=== PATIENT | female | born 1965 | race Caucasian/White ===

== ENCOUNTER 2018-01-03 06:25 | Day surgery (SDC) | payer OTHER ==
[2018-01-02 16:43] LABS: BASOPHILS % (AUTO) 0.6 % (0-1); EOSINOPHILS # (AUTO) 0.1 X10'3 (0-0.9); EOSINOPHILS % (AUTO) 1.8 % (0-6); LYMPHOCYTES # (AUTO) 2.9 X10'3 (1.1-4.8); LYMPHOCYTES % (AUTO) 40.1 % (21-51); MEAN CORPUSCULAR HEMOGLOBIN 31.9 PG (27.0-31.0); MEAN CORPUSCULAR HGB CONC 35.2 % (33.0-36.5); MEAN CORPUSCULAR VOLUME 90.7 FL (78-98); MEAN PLATELET VOLUME 8.4 FL (7.4-10.4); MONOCYTES # (AUTO) 0.5 X10'3 (0-0.9); MONOCYTES % (AUTO) 6.3 % (2-12); NEUTROPHILS # (AUTO) 3.8 X10'3 (1.8-7.7); NEUTROPHILS % (AUTO) 51.2 % (42-75); PRE OP HEMATOCRIT 35.3 % (35.0-45.0); PRE OP HEMOGLOBIN 12.4 g/dL (12.0-16.0); PRE OP PLATELET COUNT 274 X10'3 (140-440); RED BLOOD COUNT 3.89 X10'6 (4.20-5.60); RED CELL DISTRIBUTION WIDTH 13.1 % (11.5-14.5)
[2018-01-02 16:52] LABS: HEMOGLOBIN A1C 5.5 % (4.5-6.2)
[2018-01-02 16:58] LABS: ALBUMIN 3.7 G/DL (3.4-5.0); ALBUMIN/GLOBULIN RATIO 0.9 (1.1-1.5); ALKALINE PHOSPHATASE 73 IU/L (46-116); BLOOD UREA NITROGEN 14 MG/DL (7-18); BUN/CREATININE RATIO 15.6 (6.6-38.0); CALCIUM 8.8 MG/DL (8.5-10.1); CHLORIDE 108 MMOL/L (99-107); PRE OP ALT 49 U/L (30-65); PRE OP ANION GAP 10 (8-16); PRE OP AST 34 U/L (10-37); PRE OP BILIRUB, TOTAL 0.4 MG/DL (0.0-1.0); PRE OP GLUCOSE 101 MG/DL (70-104); PRE OP POTASSIUM 3.7 MMOL/L (3.4-5.1); PRE OP SODIUM 145 MMOL/L (135-145); TOTAL CARBON DIOXIDE 26.8 MMOL/L (24-32); TOTAL PROTEIN 7.6 G/DL (6.4-8.2); eGFR 65 ML/MIN
[~2018-01-03] VITALS: Ht 162.6 cm; Wt 88.2 kg
[2018-01-03] VITALS (7 sets, daily range): BP systolic 120–141; BP diastolic 57–74
[~2018-01-03 06:25] MED LIST: ACET-2144 PO; ASCO500C15 PO; CARV3.122 PO; CHOL10008 PO; DOCUMENT DATE & TIME OF BETA-BLOCKER PO ONE; GABA100C PO; GLIP5TAB13 PO; IBUP-24 PO; LACT1CAP65 PO; LEVO112T5 PO; LORA-512 PO; MULT-1085 PO; OMEG1CAP46 PO; OMEP20TA5 PO; ROSU20TA PO; VALERIAN ROOT PO; [UNRECOGNIZED DRUG - CODE] PO; cefazolin/dext.iso 2gm/50ml 50 ML IV ONE; famotidine 20mg tablet PO ONE; ringers solution, lacted 1,000 ML IV SCH
[2018-01-03] MEDS ORDERED: LIDOcaine 1% (10mg/ml) 2ml vial ONE (06:41)
[2018-01-03] MEDS ORDERED: BUPIVAcaine 0.5% inj/PF 30 ml vial ONE (07:23)
[2018-01-03] MEDS ORDERED: LIDOcaine 1% 30ml preserv. free vial ONE (08:50)
[2018-01-03] MEDS ORDERED: fentaNYL/PF 50MCG/1 ML 2ML syringe ONE (08:52)
[2018-01-03] MEDS ORDERED: MIDAZolam 5mg/5ml vial ONE (08:52)
[2018-01-03] MEDS ORDERED: ketorolac trometh. 30mg/ml inj. ONE (08:55)
[2018-01-03] MEDS ORDERED: ringers solution, lacted 1,000 ML IV SCH (09:21)
[2018-01-03] MEDS ORDERED: meperidine/PF 50mg/ml syringe IV PRN ×3 (09:25)
[2018-01-03] MEDS ORDERED: ondansetron/PF 4mg/2ml inj IV PRN (09:25)
[2018-01-03] MEDS ORDERED: proCHLORperazine 10 MG/2 ml inj IV PRN (09:25)
[2018-01-03] MEDS ORDERED: traMADol 50MG tablet PO ONE (10:30)
== END 2018-01-03 10:40 | disposition home or self-care (01) ==
LOC: PAS 06:25
PROVIDERS: ATTEND Orthopaedic Surgery
DX: G56.01 Carpal tunnel syndrome, right upper limb (principal); I10 Essential (primary) hypertension; J45.909 Unspecified asthma, uncomplicated; F17.210 Nicotine dependence, cigarettes, uncomplicated; M19.90 Unspecified osteoarthritis, unspecified site; E03.9 Hypothyroidism, unspecified; F31.9 Bipolar disorder, unspecified; E11.9 Type 2 diabetes mellitus without complications; E66.9 Obesity, unspecified; Z79.1 Long term (current) use of non-steroidal anti-inflammatories (NSAID); Z91.038 Other insect allergy status; Z90.89 Acquired absence of other organs; Z88.1 Allergy status to other antibiotic agents; Z90.710 Acquired absence of both cervix and uterus; Z88.6 Allergy status to analgesic agent; Z91.010 Allergy to peanuts; Z91.018 Allergy to other foods; Z98.890 Other specified postprocedural states; Z88.8 Allergy status to other drugs, medicaments and biological substances; Z68.33 Body mass index [BMI] 33.0-33.9, adult
CPT/HCPCS: 36415; 64721; 80053; 82948; 83036; 85025; 93005; A6449; J0690; J1885; J2250; J3010; J3490; J7120; A7000

== ENCOUNTER 2018-12-25 16:14 | Inpatient (IN) | payer OTHER ==
[~2018-12-25] VITALS: Ht 162.6 cm; Wt 79.2 kg
[~2018-12-25 16:14] MED LIST changes: -DOCUMENT DATE & TIME OF BETA-BLOCKER PO ONE; -ROSU20TA PO; +ROSU20TA2 PO; -cefazolin/dext.iso 2gm/50ml 50 ML IV ONE; -famotidine 20mg tablet PO ONE; -ringers solution, lacted 1,000 ML IV SCH
[2018-12-25] MEDS ORDERED: ondansetron/PF 4mg/2ml inj IV ONE (16:20)
[2018-12-25] MEDS ORDERED: normal saline 1000ML IV soln IVB ONE (16:20)
[2018-12-25] MEDS ORDERED: LORazepam 2 mg/ml vial IV ONE (16:20)
[2018-12-25] MEDS ORDERED: fentaNYL/PF 50MCG/1 ML 2ML syringe IV ONE (16:20)
[2018-12-25 16:57] LABS: PROTHROMBIN TIME 10.4 SECONDS (9.0-12.0)
[2018-12-25 17:00] LABS: ALANINE AMINOTRANSFERASE 27 U/L (12-78); ALBUMIN 3.8 G/DL (3.4-5.0); ALBUMIN/GLOBULIN RATIO 1.2 (1.1-1.5); ALKALINE PHOSPHATASE 57 IU/L (46-116); ANION GAP 9 (8-16); ASPARTATE AMINO TRANSFERASE 22 U/L (10-37); BILIRUBIN,TOTAL 0.3 MG/DL (0.1-1.0); BLOOD UREA NITROGEN 12 MG/DL (7-18); BUN/CREATININE RATIO 16.2 (6.6-38.0); CALCIUM 8.6 MG/DL (8.5-10.1); CHLORIDE 106 MMOL/L (99-107); CREATININE 0.74 MG/DL (0.40-0.90); GLUCOSE 100 MG/DL (70-104); POTASSIUM 3.3 MMOL/L (3.5-5.1); SODIUM 141 MMOL/L (135-145); TOTAL CARBON DIOXIDE 26.4 MMOL/L (24-32); eGFR 81 ML/MIN
[2018-12-25 17:10] LABS: BASOPHILS % (AUTO) 0.5 % (0-1); EOSINOPHILS % (AUTO) 0.7 % (0-6); HEMATOCRIT 35.3 % (35.0-45.0); HEMOGLOBIN 11.9 g/dl (12.0-16.0); LYMPHOCYTES # (AUTO) 1.8 X10'3 (1.1-4.8); LYMPHOCYTES % (AUTO) 29.2 % (21-51); MEAN CORPUSCULAR HEMOGLOBIN 31.3 PG (27.0-31.0); MEAN CORPUSCULAR HGB CONC 33.6 g/dL (33.0-36.5); MEAN CORPUSCULAR VOLUME 93.1 FL (78-98); MEAN PLATELET VOLUME 8.7 FL (7.4-10.4); MONOCYTES # (AUTO) 0.4 X10'3 (0-0.9); MONOCYTES % (AUTO) 6.4 % (2-12); NEUTROPHILS # (AUTO) 3.8 X10'3 (1.8-7.7); NEUTROPHILS % (AUTO) 63.2 % (42-75); PLATELET COUNT 236 X10'3 (140-440); RED CELL DISTRIBUTION WIDTH 13.1 % (11.5-14.5)
[2018-12-25] MEDS ORDERED: HYDROmorphone 1 mg/ml syringe IV ONE (17:15)
[2018-12-25] MEDS: normal saline 1000ml 1,000 ML IV SCH (17:52)
[2018-12-25] MEDS ORDERED: CADD PCA waste documentation MC PRN (17:55)
[2018-12-25] MEDS ORDERED: magnesium 4gm in 100ml NS 100 ML IV PRN (17:55)
[2018-12-25] MEDS ORDERED: HYDROcodone/acetaminophen 5mg/325mg tablet PO PRN (17:55)
[2018-12-25] MEDS ORDERED: HYDROmorphone/NS 1 mg/ml CADD 50 ML IV SCH (17:55)
[2018-12-25] MEDS: K and/or MAG REPLACEMENT MC SCH (17:55)
[2018-12-25] MEDS ORDERED: magnesium hydroxide 30ml (MOM) UD suspension PO PRN (17:55)
[2018-12-25] MEDS ORDERED: mag hydrox/Alum hydrox/simeth 30ml oral suspension PO PRN (17:55)
[2018-12-25] MEDS ORDERED: HYDROcodone/acetaminophen 10/325mg tab PO PRN (17:55)
[2018-12-25] MEDS ORDERED: naloxone 0.4 mg/ml inj IV PRN (17:55)
[2018-12-25] MEDS ORDERED: potassium Cl 20 mEq SR tablet PO PRN ×2 (17:55)
[2018-12-25] MEDS ORDERED: magnesium Cl slow-release 64mg tablet PO PRN (17:55)
[2018-12-25] MEDS ORDERED: ondansetron/PF 4mg/2ml inj IV PRN (17:55)
[2018-12-25] MEDS ORDERED: magnesium 2GM in 50ml NS 50 ML IV PRN (17:55)
[2018-12-25] MEDS ORDERED: potassium Cl 40MEQ/NS 500ml 500 ML IV PRN ×2 (17:55)
[2018-12-25] MEDS ORDERED: acetaminophen 325mg tablet PO PRN ×2 (17:55)
[2018-12-25] MEDS: HYDROmorphone/NS 1 mg/ml CADD 50 ML IV SCH ×5 (18:16→23:00)
[2018-12-25] MEDS ORDERED: LEVO100T PO (18:49)
[2018-12-25] MEDS ORDERED: LORA10TA7 PO (18:51)
[2018-12-25] MEDS ORDERED: ALBU8.5H8 IH (18:58)
[2018-12-25] MEDS ORDERED: DULO60CA64 PO (18:59)
--- NOTE | 2018-12-25 19:05 | NUR ---
Received report from Lizabeth BOWIE. Will assume patient care.
[2018-12-25] MEDS ORDERED: albuterol 2.5 MG/3 ML nebule NEB PRN (19:10)
[2018-12-25] MEDS ORDERED: potassium Cl oral solution 20 MEQ/15 ML PO PRN (19:49)
--- NOTE | 2018-12-25 20:00 | NUR ---
Patient arrived via gurney with family present. Patient extremely painful. Rating pain 10/10 to left leg where her fracture tibula/fibula is. Patient arrived to floor with no splint in place. Patient required 5 nursing staff to transfer her over to hospital bed which took approximately 30 mins r/t pain and position of her left leg. Patient does have a dilaudid cadd in place and using it. Vitals signs stable. Will continue with care.
--- NOTE | 2018-12-25 20:30 | NUR ---
Dr. Reese called 1mg bolus dilaudid given prior to spint being applied tonight. Charge nurse Valeria BOWIE co-witness and signed.
[2018-12-25] MEDS: acetaminophen 325mg tablet PO SCH (20:42)
[2018-12-25] MEDS: potassium Cl oral solution 20 MEQ/15 ML PO PRN (20:43)
[2018-12-25] MEDS ORDERED: temazepam 15mg capsule PO PRN (21:00)
--- NOTE | 2018-12-25 21:10 | NUR ---
Dr. Kaiser called and received orders to applied a long leg spint to left leg. Orth tech called and arrived to applied. Nurse and nursing assistance help architecture technician applied spint. Patient rating her pain level 4/10 currently. Will continue with care.
[2018-12-25 21:20] LABS: HEMOGLOBIN A1C 6.1 % (4.5-6.2)
[2018-12-25] MEDS: diphenhydrAMINE 50 mg/ml inj IV PRN (21:36)
[2018-12-25 22:00] VITALS: BP 104/66
--- NOTE | 2018-12-25 22:00 | NUR ---
Patient itching r/t dilaudid cadd. Dr. Reese called and akbar ordered and given.
--- NOTE | 2018-12-25 22:30 | NUR ---
Patient desated down to high 60's-70's. Non rebreather applied for 3-5 mins sats when up to high 90's and N/c applied at 4L. Patient Respiration rate 13. Patient current sats 96% 4L N/C. Patient pretty drowsy. CADD pump removed from patient until patient is more arousable and RR is improved. A continuous pulse ox applied at bedside. Will continue to monitor.
[2018-12-26] VITALS (16 sets, daily range): BP systolic 92–121; BP diastolic 40–67
--- NOTE | 2018-12-26 00:30 | NUR ---
Patient woke up in pain 04/01 and moaning. RR 14-16. CADD pump given back to patient. Pulse palpable to left foot. Left foot remains cold and splint in place with leg elevated.
[2018-12-26] MEDS: HYDROmorphone/NS 1 mg/ml CADD 50 ML IV SCH ×11 (01:00→23:00)
[2018-12-26] MEDS: potassium Cl oral solution 20 MEQ/15 ML PO PRN (01:39)
--- NOTE | 2018-12-26 02:00 | NUR ---
Patient reposition for comfort. Patient requesting for a Trapeze bar. Trapeze bar applied to bed. Patient was able to help with repositioning. Will continue with care.
[2018-12-26] MEDS: normal saline 1000ml 1,000 ML IV SCH ×3 (04:33→21:13)
[2018-12-26] MEDS: diphenhydrAMINE 50 mg/ml inj IV PRN ×2 (04:43→21:18)
--- NOTE | 2018-12-26 06:10 | NUR ---
Patient in room ORTHO 4014. I have received report from Lauren Lopez RN and had the opportunity to ask questions and assume patient care.
[2018-12-26 07:10] LABS: BASOPHILS % (AUTO) 0.5 % (0-1); EOSINOPHILS % (AUTO) 0.5 % (0-6); HEMOGLOBIN 9.9 g/dl (12.0-16.0); LYMPHOCYTES # (AUTO) 1.6 X10'3 (1.1-4.8); LYMPHOCYTES % (AUTO) 27.1 % (21-51); MEAN CORPUSCULAR HGB CONC 34.2 g/dL (33.0-36.5); MEAN CORPUSCULAR VOLUME 93.7 FL (78-98); MEAN PLATELET VOLUME 8.4 FL (7.4-10.4); MONOCYTES # (AUTO) 0.6 X10'3 (0-0.9); MONOCYTES % (AUTO) 9.3 % (2-12); NEUTROPHILS # (AUTO) 3.7 X10'3 (1.8-7.7); NEUTROPHILS % (AUTO) 62.6 % (42-75); PLATELET COUNT 193 X10'3 (140-440); RED BLOOD COUNT 3.09 X10'6 (4.20-5.60); RED CELL DISTRIBUTION WIDTH 13.3 % (11.5-14.5)
[2018-12-26 07:23] LABS: ALBUMIN 3.1 G/DL (3.4-5.0); ANION GAP 7 (8-16); BLOOD UREA NITROGEN 13 MG/DL (7-18); BUN/CREATININE RATIO 17.3 (6.6-38.0); CALCIUM 7.6 MG/DL (8.5-10.1); CHLORIDE 109 MMOL/L (99-107); CREATININE 0.75 MG/DL (0.40-0.90); GLUCOSE 107 MG/DL (70-104); MAGNESIUM 1.6 MG/DL (1.5-2.4); SODIUM 142 MMOL/L (135-145); TOTAL CARBON DIOXIDE 25.8 MMOL/L (24-32); eGFR 80 ML/MIN
[2018-12-26] MEDS: pantoprazole 40mg Tablet.DR PO SCH (07:30)
[2018-12-26] MEDS: lactobacillus rhamnosus 10,000 MMU CELLS/CAPSULE PO SCH (08:00)
[2018-12-26] MEDS: levoTHYROXINE 100mcg tablet PO SCH (08:00)
[2018-12-26] MEDS: loratadine 10mg tablet PO SCH (08:00)
[2018-12-26] MEDS: acetaminophen 325mg tablet PO SCH ×2 (08:00→21:12)
[2018-12-26] MEDS: K and/or MAG REPLACEMENT MC SCH (08:00)
[2018-12-26] MEDS: duloxetine 30mg CAPSULE.DR PO SCH (08:00)
[2018-12-26] MEDS ORDERED: ringers solution, lacted 1,000 ML IV SCH (09:41)
[2018-12-26] MEDS ORDERED: labetalol 20mg/4ml (5mg/ml) syringe IV PRN (09:45)
[2018-12-26] MEDS ORDERED: ondansetron/PF 4mg/2ml inj IV PRN (09:45)
[2018-12-26] MEDS ORDERED: hydrALAZINE 20mg/ml inj. IV PRN (09:45)
[2018-12-26] MEDS ORDERED: fentaNYL/PF 50MCG/1 ML 2ML syringe IV PRN ×2 (09:45)
--- NOTE | 2018-12-26 09:45 | NUR ---
Problems reprioritized. Patient report given, questions answered & plan of care reviewed with AZEB Brody in recovery.
[2018-12-26] MEDS ORDERED: midazolam 2 mg/2 ml injection ONE (09:56)
[2018-12-26] MEDS ORDERED: fentaNYL/PF 50MCG/1 ML 2ML syringe ONE (09:56)
[2018-12-26] MEDS ORDERED: sevoflurane 250ml liquid IH ONE (09:57)
[2018-12-26] MEDS ORDERED: ROPIVAcaine 0.5% (5mg/ml) 30ml vial ONE (10:03)
[2018-12-26] MEDS ORDERED: propofol inj 20 ML IV ONE (10:04)
[2018-12-26] MEDS ORDERED: ondansetron/PF 4mg/2ml inj ONE (10:04)
[2018-12-26] MEDS ORDERED: LIDOcaine 2% (20mg/ml) 5ml vial ONE (10:05)
--- NOTE | 2018-12-26 10:28 | NUR ---
Received from OR via , accompanied by Anesthesiologist DR. TREVIZO and report given by Anesthesiolgist. PATIENT RESTING WITH EYES CLOSED, RR 14, 02 100% 10L MASK, LUNG SOUNDS CLEAR, 20 GAUGE IV NOTED TO RIGHT WRIST, SCD'S IN PLACE, F/C NOTED WITH YELLOW DRAINAGE, CAST TO LEFT LEG CAP REFIL WNL. WILL CONTINUE TO MONITOR.
--- NOTE | 2018-12-26 10:30 | NUR ---
Received report from Sadaf in recovery. Vitals stable, pt very sleepy
--- NOTE | 2018-12-26 11:03 | NUR ---
PATIENT TRANSFER CRITERIA MET, TRANSFERRED BACK TO ORTHO FLOOR. REPORT CALLED TO SINA BOWIE ON ORTHO, [place] VIA ORTHO BED. VSS CHARTED, CAST TO LEFT LEG CDI, LEFT TOES WARM TO TOUCH, CAP RE-DEWEY WNL.
--- NOTE | 2018-12-26 11:35 | NUR ---
Student documentation: I have reviewed all interventions, assessments performed and documented by Kayce Dye. Student Medication Administration: For this medication-pass time frame, all medication were reviewed, dispensed, administered and documented per hospital policy by Kayce Dye.
--- NOTE | 2018-12-26 13:00 | NUR ---
The Cadd assessment settings did not change as pt had just returned from the OR and has not resumed using her Cadd pump.
--- NOTE | 2018-12-26 18:25 | NUR ---
Problems reprioritized. Patient report given, questions answered & plan of care reviewed with Nenita Deleon RN.
--- NOTE | 2018-12-26 18:30 | NUR ---
PATIENT REPORT RECEIVED FROM SINA BOWIE.
--- NOTE | 2018-12-26 22:47 | NUR ---
PATIENT REFUSED TO HAVE NEW IV PUT IN. FIELD START STILL IN PLACE.
[2018-12-27] VITALS (21 sets, daily range): BP systolic 99–159; BP diastolic 30–77
[2018-12-27] MEDS: HYDROmorphone/NS 1 mg/ml CADD 50 ML IV SCH ×12 (01:00→23:00)
[2018-12-27 05:59] LABS: BASOPHILS % (AUTO) 0.4 % (0-1); EOSINOPHILS # (AUTO) 0.1 X10'3 (0-0.9); EOSINOPHILS % (AUTO) 1.1 % (0-6); HEMATOCRIT 25.2 % (35.0-45.0); HEMOGLOBIN 8.5 g/dl (12.0-16.0); LYMPHOCYTES # (AUTO) 1.3 X10'3 (1.1-4.8); LYMPHOCYTES % (AUTO) 20.6 % (21-51); MEAN CORPUSCULAR HEMOGLOBIN 31.7 PG (27.0-31.0); MEAN CORPUSCULAR HGB CONC 33.7 g/dL (33.0-36.5); MEAN CORPUSCULAR VOLUME 94.1 FL (78-98); MEAN PLATELET VOLUME 8.5 FL (7.4-10.4); MONOCYTES # (AUTO) 0.6 X10'3 (0-0.9); MONOCYTES % (AUTO) 9.5 % (2-12); NEUTROPHILS # (AUTO) 4.4 X10'3 (1.8-7.7); NEUTROPHILS % (AUTO) 68.4 % (42-75); PLATELET COUNT 162 X10'3 (140-440); RED BLOOD COUNT 2.68 X10'6 (4.20-5.60); WHITE BLOOD COUNT 6.5 X10'3 (4.5-11.0)
[2018-12-27 06:03] LABS: ALBUMIN 2.6 G/DL (3.4-5.0); ANION GAP 6 (8-16); BLOOD UREA NITROGEN 8 MG/DL (7-18); BUN/CREATININE RATIO 13.3 (6.6-38.0); CALCIUM 7.5 MG/DL (8.5-10.1); CHLORIDE 105 MMOL/L (99-107); GLUCOSE 105 MG/DL (70-104); MAGNESIUM 1.5 MG/DL (1.5-2.4); POTASSIUM 3.6 MMOL/L (3.5-5.1); SODIUM 139 MMOL/L (135-145); eGFR > 90 ML/MIN
--- NOTE | 2018-12-27 06:21 | NUR ---
PATIENT REPORT GIVEN TO BRENTON BOWIE.
--- NOTE | 2018-12-27 06:58 | NUR ---
Patient in room ORTHO 4014. I have received report from Nenita Solorzano RN and had the opportunity to ask questions and assume patient care.
[2018-12-27] MEDS: K and/or MAG REPLACEMENT MC SCH (07:06)
[2018-12-27] MEDS: normal saline 1000ml 1,000 ML IV SCH ×2 (07:41→19:53)
[2018-12-27] MEDS: pantoprazole 40mg Tablet.DR PO SCH (08:15)
[2018-12-27] MEDS: lactobacillus rhamnosus 10,000 MMU CELLS/CAPSULE PO SCH (08:15)
[2018-12-27] MEDS: levoTHYROXINE 100mcg tablet PO SCH (08:16)
[2018-12-27] MEDS: duloxetine 30mg CAPSULE.DR PO SCH (08:16)
[2018-12-27] MEDS: loratadine 10mg tablet PO SCH (08:16)
[2018-12-27] MEDS: acetaminophen 325mg tablet PO SCH ×2 (08:17→19:48)
[2018-12-27] MEDS: diphenhydrAMINE 50 mg/ml inj IV PRN (08:18)
--- NOTE | 2018-12-27 08:41 | NUR ---
Paged picc nurse to see if a midline be placed in [id number], Picc nurse will be up to place one
--- NOTE | 2018-12-27 10:36 | NUR ---
Extended PIV inserted to the left upper arm cephalic vein x 2 attempts using ultrasound. Alicia well Addendum: 12/27/18 at 1037 by Mackenzie Johnston RN Amended: Links added.
--- NOTE | 2018-12-27 15:15 | NUR ---
Report called to Joe in Recovery
[2018-12-27] MEDS ORDERED: sevoflurane 250ml liquid IH ONE (15:32)
[2018-12-27] MEDS ORDERED: fentaNYL /PF 50mcg/ml 5ml ampule ONE (15:37)
[2018-12-27] MEDS ORDERED: midazolam 2 mg/2 ml injection ONE (15:37)
[2018-12-27] MEDS ORDERED: propofol inj 20 ML IV ONE (15:37)
[2018-12-27] MEDS ORDERED: ceFAZolin 1000mg inj ONE ×2 (15:48)
[2018-12-27] MEDS ORDERED: BUPIVAcaine/PF 2.5mg/ml (0.25%) 10ml vial ONE (16:26)
--- NOTE | 2018-12-27 16:50 | NUR ---
Received from OR via BED , accompanied by Anesthesiologist DR WALLS and report given by Anesthesiolgist. PATIENT WAKING UP, DENIES PAIN, V/S WNL, NEUROVASCULAR CHECKS INTACT, EXTENTION IV LUE , DRESSING TO LEFT LEG WITH EXTERNAL FIXATOR CDI, SCD ON. F/C DRAINING CLEAR YELLOW URINE.
--- NOTE | 2018-12-27 17:15 | NUR ---
Received report from Joe in recovery
--- NOTE | 2018-12-27 18:08 | NUR ---
Problems reprioritized. Patient report given, questions answered & plan of care reviewed with Nenita Solorzano RN.
--- NOTE | 2018-12-27 18:08 | NUR ---
PATIENT REPORT RECEIVED FROM BRENTON BOWIE.
--- NOTE | 2018-12-27 18:30 | NUR ---
PATIENT SLEEPY BUT ORIENTED X4, DENIES PAIN, V/S WNL, NEUROVASCULAR CHECKS INTACT, EXTENTION IV LUE , DRESSING TO LEFT KNEE WITH EXTERNAL FIXATOR CDI W/ SCD ON RLE. F/C DRAINING CLEAR YELLOW URINE. PATIENT TAKEN TO 4014B WITH ALL BELONGINGS AND HOOKED UP TO MONITORS IN ROOM AND REPORT GIVEN TO COAL INSPECTOR WHO HAS TAKEN OVER PATIENT CARE.
[2018-12-28] MEDS: HYDROmorphone/NS 1 mg/ml CADD 50 ML IV SCH ×12 (01:00→22:58)
[2018-12-28 02:00] VITALS: BP 104/38
[2018-12-28] MEDS: normal saline 1000ml 1,000 ML IV SCH ×2 (05:18→15:07)
[2018-12-28 06:00] VITALS: BP 104/42
--- NOTE | 2018-12-28 06:15 | NUR ---
Patient in room ORTHO 4014. I have received report from Nenita Deleon RN and had the opportunity to ask questions and assume patient care.
--- NOTE | 2018-12-28 06:32 | NUR ---
PATIENT REPORT GIVEN TO SINA BOWIE.
[2018-12-28 06:36] LABS: BASOPHILS % (AUTO) 0.4 % (0-1); EOSINOPHILS # (AUTO) 0.1 X10'3 (0-0.9); EOSINOPHILS % (AUTO) 1.3 % (0-6); HEMATOCRIT 22.2 % (35.0-45.0); HEMOGLOBIN 7.7 g/dl (12.0-16.0); LYMPHOCYTES # (AUTO) 1.5 X10'3 (1.1-4.8); LYMPHOCYTES % (AUTO) 27.5 % (21-51); MEAN CORPUSCULAR HEMOGLOBIN 32.3 PG (27.0-31.0); MEAN CORPUSCULAR HGB CONC 34.9 g/dL (33.0-36.5); MEAN CORPUSCULAR VOLUME 92.6 FL (78-98); MEAN PLATELET VOLUME 8.4 FL (7.4-10.4); MONOCYTES # (AUTO) 0.5 X10'3 (0-0.9); MONOCYTES % (AUTO) 8.7 % (2-12); NEUTROPHILS # (AUTO) 3.4 X10'3 (1.8-7.7); NEUTROPHILS % (AUTO) 62.1 % (42-75); PLATELET COUNT 151 X10'3 (140-440); RED BLOOD COUNT 2.39 X10'6 (4.20-5.60); RED CELL DISTRIBUTION WIDTH 12.9 % (11.5-14.5); WHITE BLOOD COUNT 5.5 X10'3 (4.5-11.0)
[2018-12-28 06:53] LABS: ALBUMIN 2.3 G/DL (3.4-5.0); ANION GAP 5 (8-16); BLOOD UREA NITROGEN 6 MG/DL (7-18); BUN/CREATININE RATIO 10.3 (6.6-38.0); CALCIUM 7.7 MG/DL (8.5-10.1); CHLORIDE 105 MMOL/L (99-107); CREATININE 0.58 MG/DL (0.40-0.90); GLUCOSE 119 MG/DL (70-104); MAGNESIUM 1.6 MG/DL (1.5-2.4); POTASSIUM 3.2 MMOL/L (3.5-5.1); SODIUM 140 MMOL/L (135-145); TOTAL CARBON DIOXIDE 30.2 MMOL/L (24-32); eGFR > 90 ML/MIN
[2018-12-28] MEDS: pantoprazole 40mg Tablet.DR PO SCH (07:36)
[2018-12-28] MEDS: loratadine 10mg tablet PO SCH (07:36)
[2018-12-28] MEDS: lactobacillus rhamnosus 10,000 MMU CELLS/CAPSULE PO SCH (07:36)
[2018-12-28] MEDS: levoTHYROXINE 100mcg tablet PO SCH (07:37)
[2018-12-28] MEDS: duloxetine 30mg CAPSULE.DR PO SCH (07:37)
[2018-12-28] MEDS: acetaminophen 325mg tablet PO SCH ×2 (07:37→19:12)
[2018-12-28] MEDS: potassium Cl oral solution 20 MEQ/15 ML PO PRN ×3 (07:38→23:17)
[2018-12-28] MEDS: K and/or MAG REPLACEMENT MC SCH (08:00)
[2018-12-28 10:00] VITALS: BP 95/46
[2018-12-28] MEDS: diphenhydrAMINE 50 mg/ml inj IV PRN ×2 (11:50→19:19)
[2018-12-28 14:00] VITALS: BP 98/57
[2018-12-28 15:15] LABS: BASOPHILS % (AUTO) 0.5 % (0-1); EOSINOPHILS # (AUTO) 0.1 X10'3 (0-0.9); EOSINOPHILS % (AUTO) 1.5 % (0-6); HEMATOCRIT 22.5 % (35.0-45.0); HEMOGLOBIN 7.9 g/dl (12.0-16.0); LYMPHOCYTES # (AUTO) 1.1 X10'3 (1.1-4.8); LYMPHOCYTES % (AUTO) 21.7 % (21-51); MEAN CORPUSCULAR HEMOGLOBIN 32.6 PG (27.0-31.0); MEAN CORPUSCULAR VOLUME 93.2 FL (78-98); MEAN PLATELET VOLUME 7.8 FL (7.4-10.4); MONOCYTES # (AUTO) 0.5 X10'3 (0-0.9); MONOCYTES % (AUTO) 8.9 % (2-12); NEUTROPHILS # (AUTO) 3.5 X10'3 (1.8-7.7); NEUTROPHILS % (AUTO) 67.4 % (42-75); PLATELET COUNT 150 X10'3 (140-440); RED BLOOD COUNT 2.42 X10'6 (4.20-5.60); RED CELL DISTRIBUTION WIDTH 13.2 % (11.5-14.5); WHITE BLOOD COUNT 5.1 X10'3 (4.5-11.0)
[2018-12-28 18:00] VITALS: BP 104/41
--- NOTE | 2018-12-28 18:27 | NUR ---
Problems reprioritized. Patient report given, questions answered & plan of care reviewed with Nenita Garcia RN.
--- NOTE | 2018-12-28 18:30 | NUR ---
Patient in room ORTHO 4014B. I have received report from AZEB Burgos and had the opportunity to ask questions and assume patient care.
[2018-12-28] MEDS: heparin, porcine 5000 units/ml vial SQ SCH (19:11)
[2018-12-28 22:00] VITALS: BP 99/44
[2018-12-29] MEDS: HYDROmorphone/NS 1 mg/ml CADD 50 ML IV SCH ×7 (01:00→13:00)
[2018-12-29] MEDS: normal saline 1000ml 1,000 ML IV SCH ×2 (02:40→12:00)
[2018-12-29 05:27] LABS: BASOPHILS % (AUTO) 0.5 % (0-1); EOSINOPHILS # (AUTO) 0.1 X10'3 (0-0.9); EOSINOPHILS % (AUTO) 2.2 % (0-6); HEMATOCRIT 22.1 % (35.0-45.0); HEMOGLOBIN 7.8 g/dl (12.0-16.0); LYMPHOCYTES # (AUTO) 1.2 X10'3 (1.1-4.8); LYMPHOCYTES % (AUTO) 29.8 % (21-51); MEAN CORPUSCULAR HEMOGLOBIN 32.8 PG (27.0-31.0); MEAN CORPUSCULAR HGB CONC 35.3 g/dL (33.0-36.5); MEAN CORPUSCULAR VOLUME 92.9 FL (78-98); MEAN PLATELET VOLUME 7.9 FL (7.4-10.4); MONOCYTES # (AUTO) 0.4 X10'3 (0-0.9); MONOCYTES % (AUTO) 10.2 % (2-12); NEUTROPHILS # (AUTO) 2.3 X10'3 (1.8-7.7); NEUTROPHILS % (AUTO) 57.3 % (42-75); PLATELET COUNT 156 X10'3 (140-440); RED BLOOD COUNT 2.38 X10'6 (4.20-5.60); RED CELL DISTRIBUTION WIDTH 13.2 % (11.5-14.5)
[2018-12-29 05:46] LABS: ALBUMIN 2.2 G/DL (3.4-5.0); ANION GAP 6 (8-16); BLOOD UREA NITROGEN 5 MG/DL (7-18); BUN/CREATININE RATIO 10.4 (6.6-38.0); CALCIUM 7.5 MG/DL (8.5-10.1); CHLORIDE 105 MMOL/L (99-107); CREATININE 0.48 MG/DL (0.40-0.90); GLUCOSE 99 MG/DL (70-104); MAGNESIUM 1.7 MG/DL (1.5-2.4); POTASSIUM 3.5 MMOL/L (3.5-5.1); SODIUM 141 MMOL/L (135-145); TOTAL CARBON DIOXIDE 30.4 MMOL/L (24-32); eGFR > 90 ML/MIN
[2018-12-29 06:00] VITALS: BP 101/48
--- NOTE | 2018-12-29 06:10 | NUR ---
Patient in room ORTHO 4014. I have received report from Nenita Zuluaga RN and had the opportunity to ask questions and assume patient care.
--- NOTE | 2018-12-29 06:16 | NUR ---
Problems reprioritized. Patient report given, questions answered & plan of care reviewed with AZEB Burgos.
[2018-12-29] MEDS: pantoprazole 40mg Tablet.DR PO SCH (07:45)
[2018-12-29] MEDS: loratadine 10mg tablet PO SCH (07:45)
[2018-12-29] MEDS: lactobacillus rhamnosus 10,000 MMU CELLS/CAPSULE PO SCH (07:46)
[2018-12-29] MEDS: duloxetine 30mg CAPSULE.DR PO SCH (07:46)
[2018-12-29] MEDS: heparin, porcine 5000 units/ml vial SQ SCH ×2 (07:46→19:01)
[2018-12-29] MEDS: acetaminophen 325mg tablet PO SCH (07:46)
[2018-12-29] MEDS: levoTHYROXINE 100mcg tablet PO SCH (07:46)
[2018-12-29] MEDS: K and/or MAG REPLACEMENT MC SCH (08:00)
[2018-12-29 10:00] VITALS: BP 104/30
--- NOTE | 2018-12-29 15:46 | NUR ---
PAGER ID: [phone] MESSAGE: Loretta nolasco ortho, # [phone], Ms. Culver in [id number] agreed to the jJ Cadd pump. Pt requesting to have danielle Fountain. Please advise. Thank you
[2018-12-29] MEDS: HYDROcodone/acetaminophen 10/325mg tab PO PRN ×2 (17:10→23:03)
[2018-12-29 18:00] VITALS: BP 105/46
--- NOTE | 2018-12-29 18:12 | NUR ---
Problems reprioritized. Patient report given, questions answered & plan of care reviewed with Nenita Zuluaga RN.
--- NOTE | 2018-12-29 18:12 | NUR ---
Patient in room ORTHO 4014B. I have received report from AZEB Burgos and had the opportunity to ask questions and assume patient care.
[2018-12-29 22:00] VITALS: BP 103/38
[2018-12-30 05:54] LABS: BASOPHILS % (AUTO) 0.5 % (0-1); EOSINOPHILS # (AUTO) 0.1 X10'3 (0-0.9); EOSINOPHILS % (AUTO) 1.7 % (0-6); HEMOGLOBIN 7.6 g/dl (12.0-16.0); LYMPHOCYTES # (AUTO) 1.3 X10'3 (1.1-4.8); LYMPHOCYTES % (AUTO) 29.6 % (21-51); MEAN CORPUSCULAR HEMOGLOBIN 32.1 PG (27.0-31.0); MEAN CORPUSCULAR HGB CONC 34.8 g/dL (33.0-36.5); MEAN CORPUSCULAR VOLUME 92.4 FL (78-98); MONOCYTES # (AUTO) 0.4 X10'3 (0-0.9); MONOCYTES % (AUTO) 8.3 % (2-12); NEUTROPHILS # (AUTO) 2.6 X10'3 (1.8-7.7); NEUTROPHILS % (AUTO) 59.9 % (42-75); PLATELET COUNT 197 X10'3 (140-440); RED BLOOD COUNT 2.38 X10'6 (4.20-5.60); WHITE BLOOD COUNT 4.3 X10'3 (4.5-11.0)
[2018-12-30 06:00] VITALS: BP 120/57
[2018-12-30 06:22] LABS: ALBUMIN 2.3 G/DL (3.4-5.0); ANION GAP 6 (8-16); BLOOD UREA NITROGEN 3 MG/DL (7-18); BUN/CREATININE RATIO 5.6 (6.6-38.0); CALCIUM 8.2 MG/DL (8.5-10.1); CHLORIDE 104 MMOL/L (99-107); CREATININE 0.54 MG/DL (0.40-0.90); GLUCOSE 103 MG/DL (70-104); MAGNESIUM 1.8 MG/DL (1.5-2.4); POTASSIUM 3.3 MMOL/L (3.5-5.1); SODIUM 141 MMOL/L (135-145); TOTAL CARBON DIOXIDE 30.6 MMOL/L (24-32); eGFR > 90 ML/MIN
--- NOTE | 2018-12-30 06:32 | NUR ---
Problems reprioritized. Patient report given, questions answered & plan of care reviewed with AZEB Magaña.
--- NOTE | 2018-12-30 07:01 | NUR ---
RECEIVED REPORT FROM MERLE Garcia RN
[2018-12-30] MEDS: HYDROcodone/acetaminophen 10/325mg tab PO PRN ×3 (07:59→20:46)
[2018-12-30] MEDS: lactobacillus rhamnosus 10,000 MMU CELLS/CAPSULE PO SCH (08:00)
[2018-12-30] MEDS: K and/or MAG REPLACEMENT MC SCH (08:00)
[2018-12-30] MEDS: pantoprazole 40mg Tablet.DR PO SCH (08:01)
[2018-12-30] MEDS: levoTHYROXINE 100mcg tablet PO SCH (08:01)
[2018-12-30] MEDS: loratadine 10mg tablet PO SCH (08:02)
[2018-12-30] MEDS: duloxetine 30mg CAPSULE.DR PO SCH (08:02)
[2018-12-30] MEDS: potassium Cl oral solution 20 MEQ/15 ML PO PRN (08:03)
[2018-12-30] MEDS: heparin, porcine 5000 units/ml vial SQ SCH ×2 (08:05→20:37)
[2018-12-30 10:00] VITALS: BP 123/54
--- NOTE | 2018-12-30 15:30 | NUR ---
Joint consult:Pt s/p external leg fracture repair from fall. PO 50-75% regular diet. Pt/family seen by RD for written/verbal high protein ed w/ RD contact information provided. Pt declines further proteins at this time. Addendum: 12/30/18 at [address] Amended: Links added.
--- NOTE | 2018-12-30 15:36 | NUR ---
Joint consult:Pt s/p external leg fracture repair from fall. PO 50-75% regular diet. Pt/family seen by MITCHELL for written/verbal high protein ed w/ RD contact information provided. Pt declines further proteins at this time. LBM 3/5 w/ MoM PRN. Would benefit from routine bowel care per MD approval. Will continue to monitor. Addendum: 12/30/18 at [address] Amended: Links added.
--- NOTE | 2018-12-30 16:30 | NUR ---
changed and cleaned pts external fixator per md orders, currently cdi, continue to monitor
--- NOTE | 2018-12-30 18:04 | NUR ---
GAVE REPORT FROM AZEB WANG
--- NOTE | 2018-12-30 18:16 | NUR ---
RECEIVED REPORT FROM BIANKA BOWIE AND ASSUMED PATIENT CARE
[2018-12-30] MEDS ORDERED: potassium Cl 40MEQ/NS 500ml 500 ML IV PRN ×2 (19:45)
[2018-12-30] MEDS ORDERED: potassium Cl 20 mEq SR tablet PO PRN (19:45)
[2018-12-30] MEDS: potassium Cl 20 mEq SR tablet PO PRN (20:37)
[2018-12-30 22:00] VITALS: BP 122/61
[2018-12-31] MEDS: potassium Cl 20 mEq SR tablet PO PRN (03:32)
[2018-12-31] MEDS: HYDROcodone/acetaminophen 10/325mg tab PO PRN ×2 (03:32→09:00)
[2018-12-31 06:00] VITALS: BP 116/52
[2018-12-31 06:16] LABS: BASOPHILS % (AUTO) 0.5 % (0-1); EOSINOPHILS # (AUTO) 0.1 X10'3 (0-0.9); EOSINOPHILS % (AUTO) 1.3 % (0-6); HEMATOCRIT 22.1 % (35.0-45.0); HEMOGLOBIN 7.7 g/dl (12.0-16.0); LYMPHOCYTES # (AUTO) 1.5 X10'3 (1.1-4.8); LYMPHOCYTES % (AUTO) 32.3 % (21-51); MEAN CORPUSCULAR HEMOGLOBIN 32.3 PG (27.0-31.0); MEAN CORPUSCULAR VOLUME 92.3 FL (78-98); MONOCYTES # (AUTO) 0.4 X10'3 (0-0.9); MONOCYTES % (AUTO) 8.7 % (2-12); NEUTROPHILS # (AUTO) 2.7 X10'3 (1.8-7.7); NEUTROPHILS % (AUTO) 57.2 % (42-75); PLATELET COUNT 232 X10'3 (140-440); RED BLOOD COUNT 2.39 X10'6 (4.20-5.60); WHITE BLOOD COUNT 4.8 X10'3 (4.5-11.0)
[2018-12-31 06:30] LABS: ALBUMIN 2.3 G/DL (3.4-5.0); ANION GAP 5 (8-16); BLOOD UREA NITROGEN 5 MG/DL (7-18); BUN/CREATININE RATIO 9.3 (6.6-38.0); CALCIUM 8.5 MG/DL (8.5-10.1); CHLORIDE 105 MMOL/L (99-107); CREATININE 0.54 MG/DL (0.40-0.90); GLUCOSE 104 MG/DL (70-104); MAGNESIUM 1.7 MG/DL (1.5-2.4); POTASSIUM 3.8 MMOL/L (3.5-5.1); SODIUM 140 MMOL/L (135-145); TOTAL CARBON DIOXIDE 30.5 MMOL/L (24-32); eGFR > 90 ML/MIN
[2018-12-31] MEDS: K and/or MAG REPLACEMENT MC SCH (08:00)
[2018-12-31] MEDS: lactobacillus rhamnosus 10,000 MMU CELLS/CAPSULE PO SCH (08:57)
[2018-12-31] MEDS: loratadine 10mg tablet PO SCH (08:57)
[2018-12-31] MEDS: duloxetine 30mg CAPSULE.DR PO SCH (08:57)
[2018-12-31] MEDS: pantoprazole 40mg Tablet.DR PO SCH (08:57)
[2018-12-31] MEDS: levoTHYROXINE 100mcg tablet PO SCH (08:57)
[2018-12-31] MEDS: heparin, porcine 5000 units/ml vial SQ SCH (08:58)
[2018-12-31] MEDS ORDERED: HYDR-3972 PO (11:40)
[2018-12-31] MEDS ORDERED: ENOX40SY7 SQ (14:14)
--- NOTE | 2018-12-31 17:00 | NUR ---
Discharge instructions given, iv removed, no tele on patient.
== END 2018-12-31 17:00 | disposition home health service (06) | DRG 493 ==
LOC: ER 16:14 → ORTHO 4S 17:52 → CMPBEDREQ 19:48
PROVIDERS: ADMIT Family Medicine; ATTEND Internal Medicine
PROC: 3E0U3BZ Introduction of Anesthetic Agent into Joints, Percutaneous Approach (ICD-10-PCS; 2018-12-26)
PROC: 0S9D3ZZ Drainage of Left Knee Joint, Percutaneous Approach (ICD-10-PCS; 2018-12-26)
PROC: 2W3RX1Z Immobilization of Left Lower Leg using Splint (ICD-10-PCS; 2018-12-26)
PROC: 0QSH35Z Reposition Left Tibia with External Fixation Device, Percutaneous Approach (ICD-10-PCS; 2018-12-27)
PROC: 0QSK35Z Reposition Left Fibula with External Fixation Device, Percutaneous Approach (ICD-10-PCS; principal; 2018-12-27 15:32)
DX: S82.142A Displaced bicondylar fracture of left tibia, initial encounter for closed fracture (principal); D62 Acute posthemorrhagic anemia; S82.832A Other fracture of upper and lower end of left fibula, initial encounter for closed fracture; E03.9 Hypothyroidism, unspecified; E78.00 Pure hypercholesterolemia, unspecified; E78.5 Hyperlipidemia, unspecified; W11.XXXA Fall on and from ladder, initial encounter; I10 Essential (primary) hypertension; E11.36 Type 2 diabetes mellitus with diabetic cataract; J45.909 Unspecified asthma, uncomplicated; K21.9 Gastro-esophageal reflux disease without esophagitis; F32.9 Major depressive disorder, single episode, unspecified; M19.90 Unspecified osteoarthritis, unspecified site; R00.8 Other abnormalities of heart beat; Z82.3 Family history of stroke; Z90.710 Acquired absence of both cervix and uterus; Y93.89 Activity, other specified; Y92.89 Other specified places as the place of occurrence of the external cause; Y99.8 Other external cause status; Z88.5 Allergy status to narcotic agent; Z91.010 Allergy to peanuts; Z88.8 Allergy status to other drugs, medicaments and biological substances; Z91.018 Allergy to other foods; Z90.49 Acquired absence of other specified parts of digestive tract; Z79.899 Other long term (current) drug therapy
CPT/HCPCS: 96361; 96374; 96375; 99285; Z7506; 36415; 71045; 72170; 73551; 73560; 73600; 73630; 73700; 76000; 80048; 80053; 82948; 83036; 83735; 84443; 85025; 85610; 87070; 93005; 94760; 97110; 97116; 97162; 97530; 97535; A6196; A6222; A6446; A6449; A7000; G0378; J0690; J1170; J1200; J1644; J2001; J2060; J2250; J2405; J2704; J2795; J3010; J3490; J7030; J7120

== ENCOUNTER 2019-05-29 15:17 | Outpatient (CLI) | payer OTHER ==
[~2019-05-29 15:17] MED LIST changes: +ALBU8.5H8 IH; -CARV3.122 PO; +DULO60CA65 PO; +ENOX40SY7 SQ; -GABA100C PO; -GLIP5TAB13 PO; +HYDR-3972 PO; +LEVO100T PO; -LEVO112T5 PO; -LORA-512 PO; +LORA10TA7 PO; -VALERIAN ROOT PO
== END 2019-05-29 23:59 | disposition home or self-care (01) ==
LOC: RAD 15:17
PROVIDERS: ATTEND Orthopaedic Surgery
DX: S82.832K Other fracture of upper and lower end of left fibula, subsequent encounter for closed fracture with nonunion (principal); M17.12 Unilateral primary osteoarthritis, left knee; M25.462 Effusion, left knee; M76.9 Unspecified enthesopathy, lower limb, excluding foot; I10 Essential (primary) hypertension; J45.909 Unspecified asthma, uncomplicated; E11.9 Type 2 diabetes mellitus without complications; X58.XXXD Exposure to other specified factors, subsequent encounter; Z88.8 Allergy status to other drugs, medicaments and biological substances; Z88.5 Allergy status to narcotic agent; Z88.6 Allergy status to analgesic agent; Z91.010 Allergy to peanuts; Z91.018 Allergy to other foods
CPT/HCPCS: 73560

== ENCOUNTER 2019-07-24 13:04 | Outpatient (CLI) | payer OTHER | END 2019-07-24 23:59 | disposition home or self-care (01) | LOC: LAB 13:04 → RAD 23:59 | PROVIDERS: ATTEND Family Medicine | DX: S82.202D Unspecified fracture of shaft of left tibia, subsequent encounter for closed fracture with routine healing (principal); S82.402D Unspecified fracture of shaft of left fibula, subsequent encounter for closed fracture with routine healing; X58.XXXD Exposure to other specified factors, subsequent encounter | CPT/HCPCS: 73560 ==

== ENCOUNTER 2019-07-26 12:38 | Outpatient (CLI) | payer OTHER | END 2019-07-26 23:59 | disposition home or self-care (01) | LOC: CARD DIAG 12:38 | PROVIDERS: ATTEND Internal Medicine Cardiovascular Disease | DX: I08.3 Combined rheumatic disorders of mitral, aortic and tricuspid valves (principal) | CPT/HCPCS: 93306 ==

== ENCOUNTER 2019-09-04 08:41 | Outpatient (CLI) | payer OTHER | END 2019-09-04 23:59 | disposition home or self-care (01) | LOC: RAD 08:41 | PROVIDERS: ATTEND Orthopaedic Surgery | DX: S46.011A Strain of muscle(s) and tendon(s) of the rotator cuff of right shoulder, initial encounter (principal); I10 Essential (primary) hypertension; E11.9 Type 2 diabetes mellitus without complications; J45.909 Unspecified asthma, uncomplicated; X58.XXXA Exposure to other specified factors, initial encounter; Y93.89 Activity, other specified; Y92.89 Other specified places as the place of occurrence of the external cause; Y99.8 Other external cause status | CPT/HCPCS: 73221 ==

== ENCOUNTER 2019-10-22 10:21 | Outpatient (CLI) | payer OTHER ==
[2019-10-22 11:15] LABS: BASOPHILS % (AUTO) 0.7 % (0-1); EOSINOPHILS # (AUTO) 0.1 X10'3 (0-0.9); EOSINOPHILS % (AUTO) 1.8 % (0-6); HEMATOCRIT 37.5 % (35.0-45.0); HEMOGLOBIN 12.7 g/dl (12.0-16.0); LYMPHOCYTES # (AUTO) 1.8 X10'3 (1.1-4.8); LYMPHOCYTES % (AUTO) 43.8 % (21-51); MEAN CORPUSCULAR HEMOGLOBIN 31.7 PG (27.0-31.0); MEAN CORPUSCULAR VOLUME 93.3 FL (78-98); MONOCYTES # (AUTO) 0.3 X10'3 (0-0.9); MONOCYTES % (AUTO) 7.5 % (2-12); NEUTROPHILS # (AUTO) 1.9 X10'3 (1.8-7.7); NEUTROPHILS % (AUTO) 46.2 % (42-75); PLATELET COUNT 250 X10'3 (140-440); RED BLOOD COUNT 4.01 X10'6 (4.20-5.60); RED CELL DISTRIBUTION WIDTH 13.6 % (11.5-14.5); WHITE BLOOD COUNT 4.1 X10'3 (4.5-11.0)
[2019-10-22 11:22] LABS: CLARITY,URINE CLEAR (Clear); COLOR,URINE YELLOW (Yellow); GLUCOSE, URINE NEGATIVE (Neg); KETONES,URINE NEGATIVE (Neg); LEUKOCYTE ESTERASE ,URINE NEGATIVE (Neg); NITRITES, URINE NEGATIVE (Neg); OCCULT BLOOD,URINE NEGATIVE (Neg); PROTEIN,URINE NEGATIVE (Neg); UROBILINOGEN,URINE 0.2 E.U/dL (0.2-1.0)
[2019-10-22 11:35] LABS: UA COLLECTION TYPE CLN CATCH MIDSTREAM
[2019-10-22 11:41] LABS: ALANINE AMINOTRANSFERASE 34 U/L (12-78); ALBUMIN 4.2 G/DL (3.4-5.0); ALBUMIN/GLOBULIN RATIO 1.2 (1.1-1.5); ALKALINE PHOSPHATASE 64 IU/L (46-116); ANION GAP 6 (8-16); ASPARTATE AMINO TRANSFERASE 23 U/L (10-37); BILIRUBIN,TOTAL 0.4 MG/DL (0.1-1.0); BLOOD UREA NITROGEN 11 MG/DL (7-18); BUN/CREATININE RATIO 15.3 (6.6-38.0); CHLORIDE 107 MMOL/L (99-107); CHOL/HDL RATIO 3.3 (0.00-4.99); CHOLESTEROL 172 MG/DL (0-200); CREATININE 0.72 MG/DL (0.40-0.90); GLUCOSE 90 MG/DL (70-104); HDL CHOLESTEROL 52 MG/DL (35-60); LDL CHOLESTEROL 104 MG/DL (50-100); POTASSIUM 4.1 MMOL/L (3.5-5.1); SODIUM 143 MMOL/L (135-145); TOTAL CARBON DIOXIDE 29.6 MMOL/L (24-32); TOTAL PROTEIN 7.6 G/DL (6.4-8.2); TRIGLYCERIDES 151 MG/DL (20-135); eGFR 84 ML/MIN
== END 2019-10-22 23:59 | disposition home or self-care (01) ==
LOC: LAB 10:21
PROVIDERS: ATTEND Family Medicine
DX: Z00.00 Encounter for general adult medical examination without abnormal findings (principal)
CPT/HCPCS: 36415; 80053; 80061; 81003; 84439; 84443; 85025

== ENCOUNTER 2019-11-26 12:16 | Outpatient (CLI) | payer OTHER | END 2019-11-26 23:59 | disposition home or self-care (01) | LOC: RAD 12:16 | PROVIDERS: ATTEND Orthopaedic Surgery | DX: S82.142D Displaced bicondylar fracture of left tibia, subsequent encounter for closed fracture with routine healing (principal); X58.XXXD Exposure to other specified factors, subsequent encounter | CPT/HCPCS: 73560 ==

== ENCOUNTER 2020-01-27 15:42 | Outpatient (CLI) | payer OTHER ==
[2020-01-27 16:25] LABS: BASOPHILS % (AUTO) 0.9 % (0-1); EOSINOPHILS # (AUTO) 0.1 X10'3 (0-0.9); EOSINOPHILS % (AUTO) 1.2 % (0-6); HEMATOCRIT 36.6 % (35.0-45.0); HEMOGLOBIN 12.1 g/dl (12.0-16.0); LYMPHOCYTES # (AUTO) 2.7 X10'3 (1.1-4.8); MEAN CORPUSCULAR HEMOGLOBIN 30.7 PG (27.0-31.0); MEAN CORPUSCULAR HGB CONC 33.1 g/dL (33.0-36.5); MEAN CORPUSCULAR VOLUME 92.8 FL (78-98); MEAN PLATELET VOLUME 7.7 FL (7.4-10.4); MONOCYTES # (AUTO) 0.4 X10'3 (0-0.9); MONOCYTES % (AUTO) 8.2 % (2-12); NEUTROPHILS # (AUTO) 2.2 X10'3 (1.8-7.7); NEUTROPHILS % (AUTO) 40.7 % (42-75); PLATELET COUNT 270 X10'3 (140-440); RED BLOOD COUNT 3.94 X10'6 (4.20-5.60); RED CELL DISTRIBUTION WIDTH 13.5 % (11.5-14.5); WHITE BLOOD COUNT 5.4 X10'3 (4.5-11.0)
[2020-01-27 16:34] LABS: ALBUMIN 3.8 G/DL (3.4-5.0); ANION GAP 9 (8-16); BLOOD UREA NITROGEN 11 MG/DL (7-18); BUN/CREATININE RATIO 13.4 (6.6-38.0); CALCIUM 8.6 MG/DL (8.5-10.1); CHLORIDE 107 MMOL/L (99-107); CREATININE 0.82 MG/DL (0.40-0.90); GLUCOSE 106 MG/DL (70-104); SODIUM 145 MMOL/L (135-145); TOTAL CARBON DIOXIDE 29.4 MMOL/L (24-32); eGFR 72 ML/MIN
== END 2020-01-27 23:59 | disposition home or self-care (01) ==
LOC: LAB 15:42
PROVIDERS: ATTEND Orthopaedic Surgery
DX: Z01.818 Encounter for other preprocedural examination (principal)
CPT/HCPCS: 36415; 80048; 85025

== ENCOUNTER 2020-02-20 07:49 | Outpatient (CLI) | payer OTHER ==
[2020-02-20] VITALS (8 sets, daily range): BP systolic 107–135; BP diastolic 45–63
[~2020-02-20] VITALS: Ht 162.6 cm; Wt 71.8 kg
[2020-02-20] MEDS ORDERED: metoprolol tartrate 1mg/ml inj IV PRN (08:50)
[2020-02-20] MEDS ORDERED: aminophylline 250mg/10ml inj. IV PRN (08:50)
[2020-02-20] MEDS ORDERED: nitroGLYCERIN 0.4mg SUBLingual tab SL PRN (08:50)
[2020-02-20] MEDS ORDERED: regadenoson 0.4mg/5ml syringe IV ONE (08:50)
[2020-02-20] MEDS ORDERED: atropine 0.1mg/ml 10ml syringe IV PRN (08:50)
[2020-02-20] MEDS ORDERED: normal saline 500ml IV soln 500 ML IV ONE (08:50)
== END 2020-02-20 23:59 | disposition home or self-care (01) ==
LOC: RAD 07:49
PROVIDERS: ATTEND Internal Medicine Cardiovascular Disease
DX: R06.02 Shortness of breath (principal); R00.2 Palpitations; I10 Essential (primary) hypertension; E11.9 Type 2 diabetes mellitus without complications
CPT/HCPCS: 76937; 78452; 93017; A9500; J0280; J2785; J7040

== ENCOUNTER 2020-05-06 11:11 | Outpatient (CLI) | payer BC | END 2020-05-06 23:59 | disposition home or self-care (01) | LOC: LAB 11:11 | PROVIDERS: ATTEND Family Medicine | DX: T14.90XA Injury, unspecified, initial encounter (principal); W57.XXXA Bitten or stung by nonvenomous insect and other nonvenomous arthropods, initial encounter | CPT/HCPCS: 36415 ==

== ENCOUNTER 2020-09-26 18:44 | Emergency (ER) | payer BC, OTHER ==
[~2020-09-26] VITALS: Ht 162.6 cm; Wt 71.1 kg
[~2020-09-26 18:44] MED LIST changes: -ACET-2144 PO; +ACET-3209 PO; -ASCO500C15 PO; +ASCO500C18 PO
[2020-09-26 18:47] VITALS: BP 155/61
[2020-09-26] MEDS ORDERED: HYDROcodone/acetaminophen 5mg/325mg tablet PO ONE (19:00)
== END 2020-09-26 20:50 | disposition home or self-care (01) ==
LOC: ER 18:45
DX: S52.121A Displaced fracture of head of right radius, initial encounter for closed fracture (principal); E78.00 Pure hypercholesterolemia, unspecified; F32.9 Major depressive disorder, single episode, unspecified; Z90.49 Acquired absence of other specified parts of digestive tract; I49.9 Cardiac arrhythmia, unspecified; W01.0XXA Fall on same level from slipping, tripping and stumbling without subsequent striking against object, initial encounter; Y93.89 Activity, other specified; Y92.89 Other specified places as the place of occurrence of the external cause; Y99.8 Other external cause status
CPT/HCPCS: 29125; 73110; 99284

== ENCOUNTER 2020-11-12 09:32 | Outpatient (CLI) | payer BC | END 2020-11-12 23:59 | disposition home or self-care (01) | LOC: RAD 09:32 | PROVIDERS: ATTEND Orthopaedic Surgery | DX: S52.501D Unspecified fracture of the lower end of right radius, subsequent encounter for closed fracture with routine healing (principal); M79.89 Other specified soft tissue disorders; X58.XXXD Exposure to other specified factors, subsequent encounter; X58.XXXA Exposure to other specified factors, initial encounter; Y93.89 Activity, other specified; Y92.89 Other specified places as the place of occurrence of the external cause; Y99.8 Other external cause status | CPT/HCPCS: 73110 ==

== ENCOUNTER 2020-12-11 12:32 | Outpatient (CLI) | payer BC | END 2020-12-11 23:59 | disposition home or self-care (01) | LOC: RAD 12:32 | PROVIDERS: ATTEND Orthopaedic Surgery | DX: S52.571D Other intraarticular fracture of lower end of right radius, subsequent encounter for closed fracture with routine healing (principal); X58.XXXD Exposure to other specified factors, subsequent encounter | CPT/HCPCS: 73110 ==

== ENCOUNTER 2021-05-09 09:59 | Emergency (ER) | payer BC ==
[~2021-05-09] VITALS: Ht 162.6 cm; Wt 77.7 kg
[2021-05-09 11:37] LABS: BASOPHILS % (AUTO) 0.7 % (0-1); EOSINOPHILS # (AUTO) 0.1 X10'3 (0-0.9); EOSINOPHILS % (AUTO) 1.2 % (0-6); HEMATOCRIT 34.9 % (35.0-45.0); HEMOGLOBIN 11.8 g/dl (12.0-16.0); LYMPHOCYTES # (AUTO) 1.4 X10'3 (1.1-4.8); LYMPHOCYTES % (AUTO) 23.5 % (21-51); MEAN CORPUSCULAR HEMOGLOBIN 30.6 PG (27.0-31.0); MEAN CORPUSCULAR HGB CONC 33.9 g/dL (33.0-36.5); MEAN CORPUSCULAR VOLUME 90.5 FL (78-98); MEAN PLATELET VOLUME 7.5 FL (7.4-10.4); MONOCYTES # (AUTO) 0.4 X10'3 (0-0.9); NEUTROPHILS # (AUTO) 3.9 X10'3 (1.8-7.7); NEUTROPHILS % (AUTO) 67.6 % (42-75); PLATELET COUNT 252 X10'3 (140-440); RED BLOOD COUNT 3.86 X10'6 (4.20-5.60); RED CELL DISTRIBUTION WIDTH 13.7 % (11.5-14.5); WHITE BLOOD COUNT 5.8 X10'3 (4.5-11.0)
[2021-05-09 11:50] LABS: ALANINE AMINOTRANSFERASE 28 U/L (12-78); ALBUMIN 3.9 G/DL (3.4-5.0); ALKALINE PHOSPHATASE 62 IU/L (46-116); ANION GAP 10 (8-16); ASPARTATE AMINO TRANSFERASE 24 U/L (10-37); BILIRUBIN,TOTAL 0.3 MG/DL (0.1-1.0); BLOOD UREA NITROGEN 15 MG/DL (7-18); BUN/CREATININE RATIO 20.8 (6.6-38.0); CALCIUM 8.3 MG/DL (8.5-10.1); CHLORIDE 106 MMOL/L (99-107); CREATININE 0.72 MG/DL (0.40-0.90); GLUCOSE 112 MG/DL (70-104); LIPASE 174 U/L (73-393); POTASSIUM 4.5 MMOL/L (3.5-5.1); SODIUM 140 MMOL/L (135-145); TOTAL PROTEIN 7.9 G/DL (6.4-8.2); eGFR 83 ML/MIN
[2021-05-09 12:38] LABS: CLARITY,URINE CLOUDY (Clear); COLOR,URINE YELLOW (Yellow); GLUCOSE, URINE NEGATIVE (Neg); KETONES,URINE TRACE mg/dl (Neg); LEUKOCYTE ESTERASE ,URINE SMALL (Neg); NITRITES, URINE NEGATIVE (Neg); OCCULT BLOOD,URINE NEGATIVE (Neg); PROTEIN,URINE NEGATIVE (Neg); URINE HCG NEGATIVE (NEG); UROBILINOGEN,URINE 0.2 E.U/dL (0.2-1.0)
[2021-05-09 12:43] LABS: UA COLLECTION TYPE CLN CATCH MIDSTREAM
[2021-05-09 12:44] LABS: MUCUS STRANDS MODERATE /LPF (Neg); SQUAMOUS EPITHELIAL CELL,UR MODERATE /LPF (FEW)
[2021-05-09 12:45] LABS: BACTERIA,URINE 1+ /HPF (Neg); RBC,URINE 0-2 /HPF (0-2)
[2021-05-09 12:46] LABS: TROPONIN I < 0.04 NG/ML (0.0-0.05)
[2021-05-09 16:15] VITALS: BP 123/58
== END 2021-05-09 16:21 | disposition home or self-care (01) ==
LOC: EEVIPCON 10:00 → ER 10:00
DX: R10.10 Upper abdominal pain, unspecified (principal); E78.00 Pure hypercholesterolemia, unspecified; F32.9 Major depressive disorder, single episode, unspecified; E07.9 Disorder of thyroid, unspecified; Z90.49 Acquired absence of other specified parts of digestive tract; Z79.899 Other long term (current) drug therapy; Z88.5 Allergy status to narcotic agent; Z88.1 Allergy status to other antibiotic agents; Z91.010 Allergy to peanuts
CPT/HCPCS: 36415; 71045; 80053; 81001; 81025; 83690; 84484; 85025; 87088; 93005; 99285

== ENCOUNTER 2021-10-18 11:13 | Outpatient (CLI) | payer BC ==
[~2021-10-18 11:13] MED LIST changes: +ALBU8.5H17 IH; -ALBU8.5H8 IH
[2021-10-18 11:43] LABS: CLARITY,URINE SLIGHTLY CLOUDY (Clear); COLOR,URINE YELLOW (Yellow); GLUCOSE, URINE NEGATIVE (Neg); KETONES,URINE NEGATIVE (Neg); LEUKOCYTE ESTERASE ,URINE NEGATIVE (Neg); NITRITES, URINE NEGATIVE (Neg); OCCULT BLOOD,URINE NEGATIVE (Neg); PROTEIN,URINE NEGATIVE (Neg); UROBILINOGEN,URINE 0.2 E.U/dL (0.2-1.0)
[2021-10-18 11:46] LABS: BASOPHILS % (AUTO) 0.4 % (0-1); EOSINOPHILS % (AUTO) 0.6 % (0-6); HEMATOCRIT 36.7 % (35.0-45.0); HEMOGLOBIN 12.2 g/dl (12.0-16.0); LYMPHOCYTES % (AUTO) 32.2 % (21-51); MEAN CORPUSCULAR HEMOGLOBIN 30.1 PG (27.0-31.0); MEAN CORPUSCULAR HGB CONC 33.3 g/dL (33.0-36.5); MEAN CORPUSCULAR VOLUME 90.6 FL (78-98); MEAN PLATELET VOLUME 7.3 FL (7.4-10.4); MONOCYTES # (AUTO) 0.4 X10'3 (0-0.9); MONOCYTES % (AUTO) 6.2 % (2-12); NEUTROPHILS # (AUTO) 3.8 X10'3 (1.8-7.7); NEUTROPHILS % (AUTO) 60.6 % (42-75); PLATELET COUNT 301 X10'3 (140-440); RED BLOOD COUNT 4.05 X10'6 (4.20-5.60); RED CELL DISTRIBUTION WIDTH 13.9 % (11.5-14.5); UA COLLECTION TYPE CLN CATCH MIDSTREAM; WHITE BLOOD COUNT 6.2 X10'3 (4.5-11.0)
[2021-10-18 11:49] LABS: HYALINE CASTS 0-3 /LPF (NEGATIVE); MUCUS STRANDS MANY /LPF (Neg); SQUAMOUS EPITHELIAL CELL,UR MANY /LPF (FEW); TRANSITIONAL EPI CELLS,URINE FEW /HPF
[2021-10-18 11:50] LABS: BACTERIA,URINE 1+ /HPF (Neg); RBC,URINE 0-2 /HPF (0-2); WBC,URINE 0-4 /HPF (0-4)
[2021-10-18 11:58] LABS: HEMOGLOBIN A1C 5.9 % (4.5-6.2)
[2021-10-18 12:12] LABS: ALANINE AMINOTRANSFERASE 28 U/L (12-78); ALBUMIN 3.9 G/DL (3.4-5.0); ALKALINE PHOSPHATASE 67 IU/L (46-116); ANION GAP 12 (8-16); ASPARTATE AMINO TRANSFERASE 20 U/L (10-37); BILIRUBIN,TOTAL 0.3 MG/DL (0.1-1.0); BLOOD UREA NITROGEN 14 MG/DL (7-18); BUN/CREATININE RATIO 20.6 (6.6-38.0); CALCIUM 8.9 MG/DL (8.5-10.1); CHLORIDE 104 MMOL/L (99-107); CHOL/HDL RATIO 3.5 (0.00-4.99); CHOLESTEROL 178 MG/DL (0-200); CREATININE 0.68 MG/DL (0.40-0.90); GLUCOSE 120 MG/DL (70-104); HDL CHOLESTEROL 51 MG/DL (35-60); LDL CHOLESTEROL 95 MG/DL (50-100); POTASSIUM 3.4 MMOL/L (3.5-5.1); SODIUM 142 MMOL/L (135-145); TOTAL CARBON DIOXIDE 26.5 MMOL/L (24-32); TOTAL PROTEIN 7.8 G/DL (6.4-8.2); TRIGLYCERIDES 232 MG/DL (20-135); eGFR 89 ML/MIN
== END 2021-10-18 23:59 | disposition home or self-care (01) ==
LOC: LAB 11:13
PROVIDERS: ATTEND Family Medicine
DX: Z00.01 Encounter for general adult medical examination with abnormal findings (principal)
CPT/HCPCS: 36415; 80053; 80061; 81001; 82306; 83036; 84439; 84443; 85025

== ENCOUNTER 2021-10-21 08:40 | Outpatient (CLI) | payer BC ==
[2021-10-21] MEDS ORDERED: iohexol 300mg/ml 100ml inj. ONE (08:49)
== END 2021-10-21 23:59 | disposition home or self-care (01) ==
LOC: RAD 08:40
PROVIDERS: ATTEND Family Medicine
DX: R59.9 Enlarged lymph nodes, unspecified (principal); M50.323 Other cervical disc degeneration at C6-C7 level; M47.813 Spondylosis without myelopathy or radiculopathy, cervicothoracic region
CPT/HCPCS: 70492; Q9967

== ENCOUNTER 2022-07-18 12:48 | Outpatient (CLI) | payer BC ==
[~2022-07-18 12:48] MED LIST changes: +OMEP20TA43 PO; -OMEP20TA5 PO
== END 2022-07-18 23:59 | disposition home or self-care (01) ==
LOC: CARD DIAG 12:48
PROVIDERS: ATTEND Internal Medicine Cardiovascular Disease
DX: I08.8 Other rheumatic multiple valve diseases (principal)
CPT/HCPCS: 93306

== ENCOUNTER 2022-08-12 08:05 | Outpatient (CLI) | payer BC ==
[~2022-08-12] VITALS: Ht 162.6 cm; Wt 88.0 kg
[2022-08-12] VITALS (7 sets, daily range): BP systolic 110–127; BP diastolic 50–58
[2022-08-12] MEDS: regadenoson 0.4mg/5ml syringe IV ONE (09:47)
== END 2022-08-12 23:59 | disposition home or self-care (01) ==
LOC: RAD 08:05
PROVIDERS: ATTEND Internal Medicine Cardiovascular Disease
DX: Z01.810 Encounter for preprocedural cardiovascular examination (principal); I25.89 Other forms of chronic ischemic heart disease
CPT/HCPCS: 78452; 93017; A9500; J2785

== ENCOUNTER 2022-09-06 05:56 | Day surgery (SDC) | payer BC ==
[2022-09-05 15:53] LABS: BASOPHILS % (AUTO) 0.9 % (0-1); EOSINOPHILS # (AUTO) 0.1 X10'3 (0-0.9); EOSINOPHILS % (AUTO) 1.3 % (0-6); HEMATOCRIT 35.8 % (35.0-45.0); HEMOGLOBIN 12.1 g/dl (12.0-16.0); LYMPHOCYTES # (AUTO) 2.6 X10'3 (1.1-4.8); LYMPHOCYTES % (AUTO) 50.2 % (21-51); MEAN CORPUSCULAR HEMOGLOBIN 30.1 PG (27.0-31.0); MEAN CORPUSCULAR HGB CONC 33.7 g/dL (33.0-36.5); MEAN CORPUSCULAR VOLUME 89.5 FL (78-98); MEAN PLATELET VOLUME 7.7 FL (7.4-10.4); MONOCYTES # (AUTO) 0.4 X10'3 (0-0.9); MONOCYTES % (AUTO) 8.3 % (2-12); NEUTROPHILS # (AUTO) 2.1 X10'3 (1.8-7.7); NEUTROPHILS % (AUTO) 39.3 % (42-75); PLATELET COUNT 253 X10'3 (140-440); RED CELL DISTRIBUTION WIDTH 14.4 % (11.5-14.5); WHITE BLOOD COUNT 5.2 X10'3 (4.5-11.0)
[2022-09-05 16:05] LABS: ANION GAP 11 (8-16); BLOOD UREA NITROGEN 15 MG/DL (7-18); BUN/CREATININE RATIO 18.8 (6.6-38.0); CALCIUM 8.9 MG/DL (8.5-10.1); CHLORIDE 105 MMOL/L (99-107); GLUCOSE 78 MG/DL (70-104); SODIUM 141 MMOL/L (135-145); TOTAL CARBON DIOXIDE 25.5 MMOL/L (24-32); eGFR 73 ML/MIN
[2022-09-06] VITALS (9 sets, daily range): BP systolic 105–143; BP diastolic 46–66
[~2022-09-06] VITALS: Ht 162.6 cm; Wt 86.3 kg
[2022-09-06] MEDS ORDERED: diphenhydrAMINE 25mg capsule PO PRN (06:20)
[2022-09-06] MEDS ORDERED: LORazepam 0.5 MG tablet PO PRN (06:20)
[2022-09-06] MEDS ORDERED: DULO-31 PO (06:29)
[2022-09-06] MEDS ORDERED: GABA-530 PO (06:29)
[2022-09-06] MEDS ORDERED: VALE1CAP3 PO (06:29)
[2022-09-06] MEDS ORDERED: CELE-193 PO (06:29)
[2022-09-06 07:25] LABS: APTT 24 SECONDS (22-32)
[2022-09-06] MEDS ORDERED: verapamil 2.5 mg/ml inj IV ONE (07:31)
[2022-09-06] MEDS ORDERED: midazolam 1 mg/ML 2ml injection ONE ×2 (07:31→08:49)
[2022-09-06] MEDS ORDERED: nitroGLYCERIN-Tridil 50MG/D5W 250 ML IV ONE (07:31)
[2022-09-06] MEDS ORDERED: heparin 1,000unit/ml 10ml vial 10 ML ONE (07:32)
[2022-09-06] MEDS ORDERED: fentaNYL/PF 50MCG/1 ML 2ML syringe ONE (07:32)
[2022-09-06] MEDS ORDERED: iohexol 350 MG/ML 50ML vial IV ONE ×2 (07:32→08:44)
[2022-09-06] MEDS ORDERED: iohexol 350MG/ML 100ml bottle IV ONE (07:32)
[2022-09-06] MEDS ORDERED: LIDOcaine 1% (10mg/ml) 2ml vial ONE (07:32)
--- NOTE | 2022-09-06 09:12 | NUR ---
Pt back in room. VS stable as charted.
--- NOTE | 2022-09-06 09:25 | NUR ---
Contacted pt's ride as requested by patient. Verbalization of understanding of expectation and DC time by pt's ride.
--- NOTE | 2022-09-06 09:34 | NUR ---
Pt laying in bed. Monitors on and alarms set. Pt drank 240ml juice, well tolerated.
[2022-09-06] MEDS ORDERED: HYDROcodone/acetaminophen 5mg/325mg tablet PO PRN (10:10)
[2022-09-06] MEDS ORDERED: HYDROcodone/acetaminophen 10/325mg tab PO PRN (10:10)
[2022-09-06] MEDS ORDERED: normal saline 1000ml 1,000 ML IV SCH (10:10)
== END 2022-09-06 13:01 | disposition home or self-care (01) ==
LOC: SSTAY O 05:56
PROVIDERS: ATTEND Internal Medicine Cardiovascular Disease
DX: R94.39 Abnormal result of other cardiovascular function study (principal); I25.10 Atherosclerotic heart disease of native coronary artery without angina pectoris; E78.5 Hyperlipidemia, unspecified; E66.9 Obesity, unspecified; E03.9 Hypothyroidism, unspecified; Z86.73 Personal history of transient ischemic attack (TIA), and cerebral infarction without residual deficits; Z79.01 Long term (current) use of anticoagulants; Z79.899 Other long term (current) drug therapy; Z98.890 Other specified postprocedural states
CPT/HCPCS: 36415; 80048; 85025; 85610; 85730; 93005; 93458; 99152; 99153; C1769; C1894; J1644; J2250; J3010; J3490; J7030; Q0163; Q9967; A4620; A6258; A6402; C1725

== ENCOUNTER 2024-01-30 08:39 | Outpatient (CLI) | payer BC ==
[~2024-01-30 08:39] MED LIST changes: +5-HY100C PO; -ALBU8.5H17 IH; -ASCO500C18 PO; +BACL-11 PO; +CELE-193 PO; -CHOL10008 PO; -ENOX40SY7 SQ; +GABA-530 PO; -HYDR-3972 PO; -IBUP-24 PO; -LACT1CAP65 PO; -MULT-1085 PO; -OMEG1CAP46 PO; +TRAM50TA2 PO; +VALE1CAP3 PO; -[UNRECOGNIZED DRUG - CODE] PO
== END 2024-01-30 23:59 | disposition home or self-care (01) ==
LOC: CARD DIAG 08:39
PROVIDERS: ATTEND Internal Medicine Cardiovascular Disease
DX: I08.8 Other rheumatic multiple valve diseases (principal); R06.02 Shortness of breath; R53.83 Other fatigue
CPT/HCPCS: 93306

== ENCOUNTER 2024-08-19 10:41 | Outpatient (CLI) | payer BC ==
[2024-08-19 11:32] LABS: BASOPHILS % (AUTO) 0.9 % (0-1); EOSINOPHILS # (AUTO) 0.1 X10'3 (0-0.9); EOSINOPHILS % (AUTO) 1.7 % (0-6); HEMATOCRIT 38.2 % (35.0-45.0); HEMOGLOBIN 12.6 g/dl (12.0-16.0); LYMPHOCYTES # (AUTO) 1.9 X10'3 (1.1-4.8); LYMPHOCYTES % (AUTO) 39.7 % (21-51); MEAN PLATELET VOLUME 7.7 FL (7.4-10.4); MONOCYTES # (AUTO) 0.3 X10'3 (0-0.9); MONOCYTES % (AUTO) 6.7 % (2-12); NEUTROPHILS # (AUTO) 2.4 X10'3 (1.8-7.7); PLATELET COUNT 268 X10'3 (140-440); RED BLOOD COUNT 4.06 X10'6 (4.20-5.60); RED CELL DISTRIBUTION WIDTH 13.8 % (11.5-14.5); WHITE BLOOD COUNT 4.8 X10'3 (4.5-11.0)
[2024-08-19 11:48] LABS: ALANINE AMINOTRANSFERASE 33 U/L (12-78); ALBUMIN/GLOBULIN RATIO 1.1 (1.1-1.5); ALKALINE PHOSPHATASE 80 IU/L (46-116); ANION GAP 9 (8-16); ASPARTATE AMINO TRANSFERASE 24 U/L (10-37); BILIRUBIN,TOTAL 0.4 MG/DL (0.1-1.0); BLOOD UREA NITROGEN 16 MG/DL (7-18); BUN/CREATININE RATIO 21.6 (10.0-20.0); CALCIUM 8.8 MG/DL (8.5-10.1); CHLORIDE 106 MMOL/L (99-107); CREATININE 0.74 MG/DL (0.40-0.90); GLUCOSE 87 MG/DL (70-104); POTASSIUM 3.9 MMOL/L (3.5-5.1); SODIUM 142 MMOL/L (135-145); TOTAL PROTEIN 7.8 G/DL (6.4-8.2); eGFR 80 ML/MIN
== END 2024-08-19 23:59 | disposition home or self-care (01) ==
LOC: LAB 10:41
PROVIDERS: ATTEND Nurse Practitioner
DX: G89.4 Chronic pain syndrome (principal)
CPT/HCPCS: 36415; 80053; 85025; 85651; 86140; 86235; 86431

== ENCOUNTER 2025-02-27 11:25 | Outpatient (CLI) | payer BC ==
[2025-02-27 12:21] LABS: BASOPHILS # (AUTO) 0.1 X10'3 (0-0.2); BASOPHILS % (AUTO) 1.3 % (0-1); EOSINOPHILS # (AUTO) 0.1 X10'3 (0-0.9); EOSINOPHILS % (AUTO) 2.2 % (0-6); HEMATOCRIT 34.8 % (35.0-45.0); HEMOGLOBIN 11.7 g/dl (12.0-16.0); LYMPHOCYTES # (AUTO) 1.9 X10'3 (1.1-4.8); LYMPHOCYTES % (AUTO) 44.8 % (21-51); MEAN CORPUSCULAR HEMOGLOBIN 30.8 PG (27.0-31.0); MEAN CORPUSCULAR HGB CONC 33.7 g/dL (33.0-36.5); MEAN CORPUSCULAR VOLUME 91.3 FL (78-98); MEAN PLATELET VOLUME 8.4 FL (7.4-10.4); MONOCYTES # (AUTO) 0.4 X10'3 (0-0.9); NEUTROPHILS # (AUTO) 1.8 X10'3 (1.8-7.7); NEUTROPHILS % (AUTO) 42.7 % (42-75); PLATELET COUNT 244 X10'3 (140-440); RED BLOOD COUNT 3.81 X10'6 (4.20-5.60); WHITE BLOOD COUNT 4.2 X10'3 (4.5-11.0)
[2025-02-27 12:56] LABS: HEMOGLOBIN A1C 5.6 % (4.5-6.2)
[2025-02-27 13:03] LABS: ALANINE AMINOTRANSFERASE 25 U/L (12-78); ALBUMIN/GLOBULIN RATIO 1.3 (1.1-1.5); ALKALINE PHOSPHATASE 64 IU/L (46-116); ANION GAP 9 (8-16); ASPARTATE AMINO TRANSFERASE 21 U/L (10-37); BILIRUBIN,TOTAL 0.4 MG/DL (0.1-1.0); BLOOD UREA NITROGEN 18 MG/DL (7-18); BUN/CREATININE RATIO 23.4 (10.0-20.0); CALCIUM 8.7 MG/DL (8.5-10.1); CHLORIDE 107 MMOL/L (99-107); CHOL/HDL RATIO 2.5 (0.00-4.99); CHOLESTEROL 129 MG/DL (0-200); CREATININE 0.77 MG/DL (0.40-0.90); FREE T4 (FREE THYROXINE) 0.87 NG/DL (0.73-1.40); GLUCOSE 94 MG/DL (70-104); HDL CHOLESTEROL 51 MG/DL (35-60); LDL CHOLESTEROL 60 MG/DL (50-100); SODIUM 144 MMOL/L (135-145); THYROID STIMULATING HORMONE 0.87 ulU/ml (0.34-4.50); TOTAL CARBON DIOXIDE 27.7 MMOL/L (24-32); TRIGLYCERIDES 160 MG/DL (20-135); eGFR 76 ML/MIN
[2025-02-27 13:46] LABS: % IRON SATURATION 20 % (11-46); IRON 59 UG/DL (49-151); TOTAL IRON BINDING CAPACITY 302 UG/DL (259-388)
[2025-03-01 11:11] LABS: ESTRADIOL <5.0 pg/mL (0.0-54.7); LUTEINIZING HORMONE 21.5 mIU/mL (7.7-58.5); TESTOSTERONE, SERUM <3 ng/dL (3-67)
[2025-03-02 11:09] LABS: FOLATE SERUM(FOLIC) 11.2 ng/mL (>3.0)
== END 2025-02-28 23:59 | disposition home or self-care (01) ==
LOC: LAB 11:25
PROVIDERS: ATTEND Nurse Practitioner
DX: E53.8 Deficiency of other specified B group vitamins (principal); E03.9 Hypothyroidism, unspecified; Z13.1 Encounter for screening for diabetes mellitus; E87.8 Other disorders of electrolyte and fluid balance, not elsewhere classified; R79.89 Other specified abnormal findings of blood chemistry; Z13.220 Encounter for screening for lipoid disorders; Z13.29 Encounter for screening for other suspected endocrine disorder; R53.83 Other fatigue
CPT/HCPCS: 36415; 80053; 80061; 82306; 82607; 82670; 82746; 83001; 83002; 83036; 83540; 83550; 84402; 84403; 84439; 84443; 85025

== ENCOUNTER 2025-03-31 14:45 | Outpatient (CLI) | payer BC ==
--- NOTE | 2025-04-01 18:19 | CARDIOLOGY REPORT ---
APPROVED REPORT EXAM: Comprehensive 2D, Doppler, and color-flow Echocardiogram. Patient Location: OUT-PATIENT Blood Pressure: 94/ 30 mmHg Heart Rate: 55 bpm Rhythm: SINUS BRADYCARDIA Indications CORONARY ARTERY DISEASE MODERATE AORTIC INSUFFICIENCY Disability Attorney: MD Rowdy Previous echo: 01/29/25 [facility] HD EF: 63%; nlLV; mRVE; mLAE; nlAV; modAI; nlMV; trMR; trTR; 2D Dimensions RVDd 3.1 cm LVOT Diameter 2.03 (1.8-2.4cm) M-Mode Dimensions IVSd 1.43 (0.7-1.1cm) LVDd 5.06 (4.0-5.6cm) PWd 1.26 (0.7-1.1cm) IVSs 1.88 cm MV EPSS 0.4 (<0.5cm) LVDs 3.08 (2.0-3.8cm) FS (%) 39 % PWs 1.56 cm ESV(Teich) 37.4 ml LVEF(%) 69 (>50%) Aortic Valve AoV Peak Yoel. 146.7 cm/s AoV VTI 33.5 cm AO Peak GR. 8.5 mmHg AO Mean GR. 4 mmHg LVOT VTI 28.44 cm LVOT Peak Yoel. 124.3 cm/s CORDELL (VMAX) 2.74 cm2 CORDELL (VTI) 2.75 cm2 AI P 1/2 Time 632 ms Mitral Valve MV E Velocity 58.3 cm/s MV DECEL TIME 237 ms MV A Velocity 83.3 cm/s MV PHT 59 ms E/A Ratio 0.7 MVA (PHT) 3.74 cm2 Tricuspid Valve TR P. Velocity 243 cm/s RAP ESTIMATE 10 mmHg TR Peak Gr. 24 mmHg RVSP 34 mmHg Pulmonary Vein S2 Velocity 65.98 cm/s PVa [id number] msec LEFT VENTRICLE Normal LV size and wall thickness. Overall systolic function is normal. LVEF is 60-65%. RIGHT VENTRICLE RV is mildly increased in size with adequate function. ATRIA The left atrium size is normal. AORTIC VALVE Trileaflet AV appears mildly sclerotic without stenosis. Moderate insufficiency. MITRAL VALVE Mild MV annular calcification without stenosis. Trace regurgitation. TRICUSPID VALVE TV appears structurally normal with trace regurgitation. PULMONIC VALVE Normal PV without stenosis, physiologic insufficiency. GREAT VESSELS Aortic root is normal in size. Ascending aorta is normal in size. PERICARDIUM Normal pericardium. No effusion. Other Information Study Quality: Adequate Conclusion Normal LV size and wall thickness. Overall systolic function is normal. LVEF is 60-65%. RV is mildly increased in size with adequate function. The left atrium size is normal. Trileaflet AV appears mildly sclerotic without stenosis. Moderate insufficiency. Mild MV annular calcification without stenosis. Trace regurgitation. TV appears structurally normal with trace regurgitation. Normal pericardium. No effusion.
== END 2025-03-31 23:59 | disposition home or self-care (01) ==
LOC: RAD 14:45
PROVIDERS: ATTEND Internal Medicine Cardiovascular Disease
DX: I08.8 Other rheumatic multiple valve diseases (principal); I25.119 Atherosclerotic heart disease of native coronary artery with unspecified angina pectoris
CPT/HCPCS: 93306

== ENCOUNTER 2025-04-17 08:48 | Outpatient (CLI) | payer BC ==
[2025-04-17] MEDS ORDERED: regadenoson 0.4mg/5ml syringe IV ONE (10:30)
[2025-04-17] MEDS ORDERED: aminophylline inj. 0 ML IV ONE (10:55)
--- NOTE | 2025-04-17 13:16 | RADIOLOGY REPORT ---
Reason for study/Clinical History: ATHSCL HEART DISEASE OF [place] COR ART W UNSP ANG PCTRS Comparison Study: NM LYNN SCAN on DOS: 08/12/22 Myocardial Perfusion Study with SPECT Technique: The patient received an intravenous injection of 7.9 mCi of technetium-99m Sestamibi whi le at rest. After a short delay, SPECT tomographic images of the heart were obtained. The patient lakesha espinal went to the stress lab where they received an intravenous Lexiscan utilizing standard protocol. 34 mCi of technetium-99m Sestamibi was injected intravenously immediately after the start of the in fusion. Gated SPECT tomographic images of the heart were acquired and processed. Findings: Rotating planar images show no significant attenuation artifact. The left ventricular size is within normal limits. Stress tomographic images demonstrate normal perfusion. Resting tomographic images demonstrate a similar pattern. Gated portion of the study shows normal wall motion and myocardial thickening. The left ventricular ejection fraction is 60%. (normal greater than 50%) Impression: Normal left ventricular size, wall motion, and function, without evidence of infarction or of myocard ium at ischemic risk. The left ventricular ejection fraction is 60%.
== END 2025-04-17 23:59 | disposition home or self-care (01) ==
LOC: NM 08:48
PROVIDERS: ATTEND Internal Medicine Cardiovascular Disease
DX: I25.119 Atherosclerotic heart disease of native coronary artery with unspecified angina pectoris (principal); R07.9 Chest pain, unspecified
CPT/HCPCS: 78452; 93017; A9500; J2785; J0280

== ENCOUNTER 2025-05-16 08:41 | Outpatient (CLI) | payer BC ==
--- NOTE | 2025-05-16 10:42 | RADIOLOGY REPORT ---
EXAM: DI HAND, COMPLETE (3VW MIN), DI HAND, COMPLETE (3VW MIN) CLINICAL INDICATION: RIGHT HAND PAIN TECHNIQUE: DI HAND, COMPLETE (3VW MIN), DI HAND, COMPLETE (3VW MIN) Comparison: None FINDINGS/IMPRESSION: There is no evidence of acute fracture or dislocation. 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 The alignment is anatomical. There is no radiopaque foreign body.
[2025-05-20] MEDS ORDERED: LIDO700A47 TOP (12:32)
== END 2025-05-16 23:59 | disposition home or self-care (01) ==
LOC: RAD 08:41
PROVIDERS: ATTEND Nurse Practitioner
DX: M18.0 Bilateral primary osteoarthritis of first carpometacarpal joints (principal); M79.642 Pain in left hand; M79.641 Pain in right hand
CPT/HCPCS: 73130

== ENCOUNTER → 2025-05-20 | Emergency (ER) | payer BC ==
[~2025-05-20] VITALS: Ht 160 cm; Wt 87.7 kg
[~2025-05-20] MED LIST changes: +LIDO700A47 TOP; +iohexol 300mg/ml 100ml inj. ONE
--- NOTE | 2025-05-20 09:23 | RADIOLOGY REPORT ---
[facility] EXAMINATION: DI UNI RIBS WITH PA CHEST INDICATION: RIGHT SIDED MIDDLE RIB PAIN COMPARISON: None TECHNIQUE: Frontal view of the chest and 6 views of the right ribs history FINDINGS: No focal consolidation, pleural effusion or significant pneumothorax. Normal cardiomediastinal silhou ette. No displaced right rib fracture. IMPRESSION: No acute cardiopulmonary disease. No displaced right rib fracture.
--- NOTE | 2025-05-20 09:50 | Physician Documentation ---
History of Present Illness ~ Chief Complaint: Rib pain Stated Complaint: RIB PAIN Time Seen by MD: 09:04 OK to notify your PCP?: Yes Primary Medical Doctor: ALBA; MD Karl Denton Source: patient Mode of Arrival: POV Exam Limitations: no limitations HPI 59-year-old female presents for right rib/right upper quadrant pain after falling into a trailer and landing on it. She has tried her normal chronic pain medications such as Tylenol, ibuprofen, Celebrex and tramadol but is still having much pain. Denies any nausea, vomiting or diarrhea or blood in urine. Tetanus within 5 Years?: No Allergies: Coded Allergies: fluticasone propionate (Unverified Allergy, Severe, BLISTERES ON MUCUS MEMBRANES, 05/20/25) morphine (Verified Allergy, Severe, HIVES, 05/20/25) peanut (Verified Allergy, Severe, ANAPHYLACSIS, 05/20/25) EVEN BREATHING FUMES CAUSES THROAT CONSTRICTION vancomycin (Verified Allergy, Severe, HIVES, 05/20/25) soy (Verified Allergy, Intermediate, RASH. ABD DISTRESS, 05/20/25) atorvastatin (Verified Allergy, Unknown, SEVERE MUSCLE PAIN, 05/20/25) metformin (Verified Adverse Reaction, Unknown, SEVERE ABDOMINAL PAIN, 05/20/25) Uncoded Allergies: MULBERRIES/ RASH (Allergy, Intermediate, RASH, 03/28/15) Active Prescriptions See Medication Reconciliation Form. Medication Reconciliation Scheduled 5-Hydroxytryptophan (5-Htp), 1 CAP PO DAILY, (Reported) Acetaminophen (Tylenol), 2 TAB PO TID, (Reported) Baclofen (Baclofen), 1 TAB PO HS, (Reported) Celecoxib* (Celebrex*), 1 CAP PO Q12H, (Reported) Duloxetine HCl (Duloxetine HCl), 1 CAP PO DAILY, (Reported) Gabapentin (Gabapentin), 1 CAP PO HS, (Reported) Levothyroxine Sodium (Synthroid), 1 TAB PO DAILY, (Reported) Loratadine (Loratadine), 1 TAB PO DAILY, (Reported) Omeprazole (Omeprazole), 20 MG PO DAILY, (Reported) Rosuvastatin Calcium* (Crestor*), 20 MG PO HS, (Reported) Tramadol HCl (Tramadol HCl), 1 TABLET PO BID, (Reported) Valerian/Flower/Hops/Lemon (Valerian Root-Herbal 450Mg Cap), 1 CAP PO HS, (Reported) Scheduled PRN Tramadol HCl (Tramadol HCl), 1 TABLET PO BID PRN for pain, (Reported) Past Medical History Past Medical History: Cataracts, Arrhythmia, High Cholesterol, Thyroid (unspecified), Arthritis, Depression Past Surgical History: abdominal surgery, cholecystectomy, hysterectomy, orthopedic surgeries Patient History: (CVA) Cerebrovascular accident GRANDFATHER OR GRANDMOTHER (Cancer) Malignant carcinoid tumor FATHER Alcohol Use: Rarely Drug Use: none Lives with: Family Lives In: Home Occupation: employed Review of Systems All Other Systems at this time: Reviewed and Negative Physical Exam Vital Signs: RN Vital Signs have been reviewed: Yes, Temperature: 98.1, Source: Oral, Heart Rate: 62, Respiratory Rate: 18, BP: 131/56, Pulse Oximetry: 97, Weight: 87.650 Oxygen Flow Rate: 0 Pulse Oximetry Reflects: adequate oxygenation Physical Exam General: Alert, no apparent distress. HEENT: PERRL, EOMI, no injection, moist mucous membranes. Neck: Full range of motion. Respiratory: Lungs clear, no respiratory distress. Chest: No accessory muscle use. Tenderness to palpation of right lower ribcage. Cardiovascular: Regular rate and rhythm, no murmurs. Gastrointestinal: Soft, nondistended. Bowels sounds present. Very tender to palpation of right upper quadrant along liver border. Extremities: Normal range of motion, no deformity. Neurologic: Oriented x4. Psychiatric: Normal mood and affect. Skin: Normal color, warm and dry. No edema, no ecchymosis. Progress Progress Note 1044: Updated patient with lab results. She reports that last week she had lab work drawn and her hemoglobin was around 12. We discussed that today it is 11.8 but this is within normal range for her. She reports that if she does not move her pain as a 3/10 and she is declining pain medications at this time. Awaiting CT scan. Results/Orders Reviewed/noted all lab results: Yes Results/Orders Orders - TRACY BARROSO Ct Chest Abdomen Pelvis Iv Con (05/20/25 10:50) Saline Lock (05/20/25 ) Urinalysis, Cult If Indicated (05/20/25 09:57) Completed Orders - TRACY BARROSO Cbc/Diff (05/20/25 09:52) CMP (05/20/25 09:52) Ct Chest Abdomen Pelvis Iv Con (05/20/25 10:50) Normal Saline 1000ml (0.9% Sodium Chlori (05/20/25 09:55) Iohexol 300mg/Ml 100ml Inj. (Omnipaque-3 (05/20/25 10:29) Medications Received in ER Medications (Trade) Dose Ordered Sig/Lakshmi Route PRN Reason Start Time Stop Time Status Last Admin Dose Admin (0.9% sodium chloride (NS) 1000ml IV soln) 500 ml ONCE ONCE IVB 05/20/25 09:55 05/20/25 09:58 DC 05/20/25 11:08 500 ML Vital Signs 05/20/25 05/20/25 05/20/25 08:47 09:19 12:06 Temp 98.1 98.1 98.1 Pulse 68 62 56 Resp 20 18 15 B/P (MAP) 142/53 131/56 (81) 114/50 (71) Pulse Ox 99 97 99 O2 Flow Rate 0 0 0 Laboratory Tests Test 05/20/25 10:15 White Blood Count 4.4 L Red Blood Count 3.86 L Hemoglobin 11.8 L Hematocrit 35.0 Mean Corpuscular Volume 90.5 Mean Corpuscular Hemoglobin 30.5 Mean Corpuscular Hemoglobin Concent 33.7 Red Cell Distribution Width 13.1 Platelet Count 229 Mean Platelet Volume 7.9 Neutrophils (%) (Auto) 49.8 Lymphocytes (%) (Auto) 36.8 Monocytes (%) (Auto) 10.0 Eosinophils (%) (Auto) 2.3 Basophils (%) (Auto) 1.1 H Neutrophils # (Auto) 2.2 Lymphocytes # (Auto) 1.6 Monocytes # (Auto) 0.4 Eosinophils # (Auto) 0.1 Basophils # (Auto) 0.0 CBC Comment Sodium Level 140 Potassium Level 3.9 Chloride Level 108 H Carbon Dioxide Level 27.6 Anion Gap 4 L Blood Urea Nitrogen 19 H Creatinine 0.78 Estimated GFR/1.73 m2 75 BUN/Creatinine Ratio 24.4 H Glucose Level 99 Calcium Level 8.5 Total Bilirubin 0.2 Aspartate Amino Transf (AST/SGOT) 19 Alanine Aminotransferase (ALT/SGPT) 29 Alkaline Phosphatase 59 Total Protein 7.0 Albumin 3.6 Globulin 3.4 Albumin/Globulin Ratio 1.1 Chemistry Comments EKG/XRAY/CT/US/VASC/MRI Chest X-Ray : Additional Comments chest with rib x-ray: as interpreted by me; no large effusion, no large infiltrate, no acute fracture and normal mediastinum. CT : Impression CT with IV contrast of chest/abdomen/pelvis as interpreted by me; no free air, no intra-abdominal hemorrhage, no rib fracture. Medical Decision Making Additional info obtained from: old records Findings 59-year-old female with blunt trauma to right lower ribcage and right upper quadrant. She is very tender to palpation in this area and has a slight amount of bruising. X-ray of ribs and chest was normal, showed no acute fracture. I discussed this case with Dr. Fishman who also examined the patient and recommended further imaging. I have ordered CBC, CMP, UA, IV fluids as well as a CT chest abdomen and pelvis with contrast to rule out liver laceration, rib fracture, or and kidney damage. I offered her pain medication but she declined at this time. Labs were unremarkable besides mild anemia which she reports is within normal range for her. Vital signs have remained stable. CT with contrast of chest abdomen and pelvis was normal. We discussed that no rib fractures are seen on either imaging modalities and that there are no intra-abdominal bleeding noted. I prescribed lidocaine patch that she can put directly to the affected area and we placed the 1st 1 while she was here in the department. We discussed that rib contusions can take up to 6-8 weeks to fully heal. I have given her a work note for 1 week off. We discussed that she needs to take deep breaths to prevent atelectasis. I have given her an incentive spirometer to go home with. Differential Dx:Considerations: Include: Flail chest, Pneumothorax Departure Disposition: 01 HOME / SELF CARE / HOMELESS Impression: Primary Impression: Rib pain Condition: Stable Discharge Instructions: Rib Contusion Additional Instructions: Please use the lidocaine patches prescribed to help with pain relief and you can wear them up to 12 hours at a time. Rib contusions can take 6-8 weeks to fully heal, there was no fracture seen on your imaging today. Please use the incentive spirometer 10 times an hour to prevent atelectasis. Follow up with her primary care provider within the next week and return back here for any new or worsening symptoms. Departure Forms: Excuse form Work or School Excuse beginning now through the following date: May 27, 2025 Referrals: NO PRIMARY CARE PROVIDER (PCP) Prescriptions Lidocaine (Lidocaine) 5 % Adh..patch 1 PATCH TOP DAILY for 30 Days, #30 PATCH 0 Refills Prov: TRACY BARROSO 05/20/25 Education Educated: Patient Educated regarding: diagnosis, treatment, prognosis, need for follow up Additional Comment Medical Screen Exam This patient recieved a medical screening examination. After reviewing the cydney dempsey's medical complaints with presenting symptoms and performing an appropriate physical examination, it was determined that no immediate life- threatening emergency medical condition is present. This individual is also not a women having contractions. Signature Scribe Signature: . Attestation: Scribed for Tracy Barroso by Tracy Gauthier NP . 05/20/25 12:35 Parts of this note were created using [employer] voice recognition software program. While efforts were made to correct any mistakes made by this voice recognition software program, nonsensical phrases may remain in this note. In addition, there may be errors and syntax, grammar, content and spelling. TRACY BARROSO May 20, 2025 09:50
[2025-05-20 10:29] LABS: MEAN PLATELET VOLUME 7.9 FL (7.4-10.4); RED CELL DISTRIBUTION WIDTH 13.1 % (11.5-14.5)
[2025-05-20 10:38] LABS: CREATININE 0.78 MG/DL (0.40-0.90); TOTAL CARBON DIOXIDE 27.6 MMOL/L (24-32); eCRCL 63 ML/MIN; eGFR 75 ML/MIN
[2025-05-20] MEDS: normal saline 1000ML IV soln IVB ONE (11:08)
--- NOTE | 2025-05-20 12:05 | RADIOLOGY REPORT ---
CT CT CHEST ABDOMEN PELVIS IV CON W/ IV CONTRAST INDICATION: blunt right lower rib/RUQ trauma, pain EXAM DATE: 05/20/2025 10:53 AM COMPARISON: None RADIATION DOSE: CTDIvol: 30 mGy, DLP: 1550 mGy*cm PROCEDURE: Helical CT images were obtained of the chest, abdomen, and pelvis with intravenous contras t. Sagittal and coronal reconstructions are provided. ORAL CONTRAST: None. ADDITIONAL IMAGES / REFORMATS: None All CT scans at this medical facility are performed using dose modulation techniques as appropriate t o a performed exam including the following: Automated exposure control was utilized; adjustment of th e MA and/or KV according to patient size; and use of iterative reconstruction technique. FINDINGS: CHEST: BONES: Scattered degenerative changes are noted in the visualized osseous structures. CHEST WALL: Normal. SOFT TISSUES:Normal. MEDIASTINUM: Normal. HEART: Normal. VESSELS: Normal. LYMPH NODES: Normal. PLEURA: Normal. AIRWAYS: Normal. LUNG: Normal. ABDOMEN AND PELVIS: BONES: Scattered degenerative changes are noted in the visualized osseous structures. LIVER: Normal. GALLBLADDER AND BILIARY TREE: Oriana clips. No intra- or extrahepatic biliary ductal dilation. PANCREAS: Normal. SPLEEN: Normal. BOWEL: Severe colonic diverticulosis. Normal appendix. ADRENALS: Normal. KIDNEYS AND URETER: Normal. BLADDER: Normal. REPRODUCTIVE ORGANS: Absent uterus. LYMPH NODES:No lymphadenopathy. PERITONEUM: No ascites or free air. No other fluid collection. VESSELS: Normal RETROPERITONEUM: Normal. ABDOMINAL WALL: Normal. IMPRESSION: No acute intrathoracic or intraabdominal abnormality.
[2025-05-20 12:06] VITALS: TEMP 98.1
[2025-05-20 12:40] VITALS: BP 92/45; PULSE 56; RESP 15; O2SAT 99
== END | disposition home or self-care (01) ==
LOC: EEVIPCON 08:45 → ER 08:45
DX: R07.81 Pleurodynia (principal); E78.00 Pure hypercholesterolemia, unspecified; M19.90 Unspecified osteoarthritis, unspecified site; F32.A Depression, unspecified; Z79.899 Other long term (current) drug therapy; Z88.5 Allergy status to narcotic agent; Z88.1 Allergy status to other antibiotic agents; Z90.710 Acquired absence of both cervix and uterus; Z90.49 Acquired absence of other specified parts of digestive tract; Z88.8 Allergy status to other drugs, medicaments and biological substances
CPT/HCPCS: 36415; 71101; 71260; 74177; 80053; 85025; 96360; 99285; J7030; Q9967